=== PATIENT | female | born 1985 | race African-American/Black ===

== ENCOUNTER 2016-07-13 08:24 | Inpatient (IN) | payer MEDICAID ==
[2016-07-13] MEDS ORDERED: MISOPROSTOL 0.2 MG TABLET ONE (08:55)
[2016-07-13] MEDS ORDERED: CARBOPROST TROMETHAMINE INJ 250 MCG/1 ML AMPULE ONE (08:56)
[2016-07-13] MEDS ORDERED: METHYLERGONOVINE MALEATE INJ/PF 0.2 MG/1 ML AMPULE ONE (08:56)
[2016-07-13] MEDS ORDERED: OXYTOCIN 10 UNIT/ML VIAL ONE (08:59)
[2016-07-13] MEDS ORDERED: ONDANSETRON HCL INJ/PF 4 MG/2 ML SDV ONE (08:59)
[2016-07-13] MEDS ORDERED: CEFAZOLIN INJ 1 GM VIAL ONE (08:59)
[2016-07-13] MEDS ORDERED: PROPOFOL INJ 200 MG/20 ML VIAL IV ONE (08:59)
[2016-07-13] MEDS ORDERED: FENTANYL CITRATE INJ/PF 100 MCG/2 ML AMPUL ONE ×2 (08:59→09:00)
[2016-07-13] MEDS ORDERED: MIDAZOLAM 2 MG/2 ML INJ ONE (09:00)
[2016-07-13] MEDS ORDERED: MORPHINE SULFATE 10 MG/ML INJ ONE (09:35)
--- NOTE | 2016-07-13 10:00 | L&D Flow Sheet ---
LD Flowsheet Datetime Report Generated by CPN: 07/13/2016 10:00 Datetime: 07/13/2016 09:57 Vital Signs NBP Sys/Crystal/Mean (mmHg): 135 (QS system process) : 69 (QS system process) : 87 (QS system process) Pulse: 89 (QS system process) Pulse: 87 (QS system process) SpO2 (%): 100 (QS system process) Datetime: 07/13/2016 08:42 Pulse: 107 (QS system process) SpO2 (%): 92 (QS system process) Datetime: 07/13/2016 08:41 Pulse: 100 (QS system process) SpO2 (%): 99 (QS system process) Datetime: 07/13/2016 08:32 Vaginal Exam Membranes Ruptured Date/Time: 07/13/2016 08:52 (Delia Chin RN) Membranes Rupture Method: Artificial (Delia Chin RN) Amniotic Fluid Color: Bloody (Delia Chin RN) Amniotic Fluid Amount: Moderate (Delia Chin RN) Amniotic Fluid Odor: Normal (Delia Chin RN)
--- NOTE | 2016-07-13 10:33 | OPERATIVE REPORT E ---
Operative Report NAME: HERNAN HUBER : 1985 AGE: 31Y DATE OF SURGERY: 07/12/2016 ROOM: LR200 PREOPERATIVE DIAGNOSES: 1. Abruption. 2. History of . 3. Currently at 35 weeks' gestation. POSTOPERATIVE DIAGNOSES: 1. Massive abruption. 2. History of . OPERATION PERFORMED: Repeat low-transverse . SURGEON: WOODROW ESPAÑA M.D. ANESTHESIA: General endotracheal. ESTIMATED BLOOD LOSS: 500 mL. Intraoperatively the patient had vaginal bleeding and greater than 500 mL of blood and clot behind her placenta. SPECIMEN TO PATHOLOGY: Placenta. FINDINGS: Normal-appearing uterus, tubes and ovaries, but the placenta was about 80% from the uterine wall with at least 500 mL of blood and clot behind it. There was not a Couvelaire sign at this point. The x-ray obtained postop due to the STAT nature of the section showed no retained instruments or laparotomy sponges. DESCRIPTION OF PROCEDURE: I was called to the operating room with the patient in the OR by the internet programmer as the patient had arrived on Labor and Delivery hypotensive with heart tones in the 50s. She was having a significant amount of vaginal bleeding and severe abdominal pain. She had been taken to the operating room on my arrival. I quickly obtained verbal consent, prepped and draped her and proceeded with STAT section. After prepping and draping the patient, general anesthesia was achieved. A Pfannenstiel skin incision was made and the abdomen was entered in layers. The low-transverse cervical incision was made. Surgeon's hand was entered into the hysterotomy and the vertex delivered. The infant delivered easily. Cord was clamped and cut, leaving approximately 4 cm of cord for the NICU to use should they need it for venous access. The infant was immediately handed to the NICU team who was in attendance. The placenta was removed. The uterus was exteriorized and cleared of all clots and debris. It was boggy; therefore, Methergine 1 amp was given IM and Cytotec 1000 mcg was placed per rectum by the nurse. The hysterotomy incision was closed with 0 Vicryl in a running, locked fashion. A couple areas of oozing were oversewn with 0 Vicryl. Excellent hemostasis was assured. The uterus, tubes and ovaries were returned to the peritoneal cavity. The cavity was irrigated and hemostasis again assured. Surgicel was placed over the uterine incision given the abruption and concern for future coagulopathy. The peritoneum was closed with 2-0 chromic. The rectus muscles were closed in an interrupted fashion with 2-0 chromic. Subfascial spaces were inspected and noted to be hemostatic. The fascia was closed with #1 Vicryl. The subcutaneous tissues were irrigated and hemostasis achieved with cautery. The skin was closed in a subcuticular fashion with 4-0 Vicryl. The OpSite dressing was applied. While the patient was still under general anesthesia an x-ray was obtained to assure no retained instruments or laparotomy sponges. When the x-ray was normal the patient was awakened from anesthesia and taken to recovery in stable condition. DICTATING PHYSICIAN: WOODROW ESPAÑA M.D. [id number] PHY#: [id number] ID: [id number] JOB#: [id number] ACCT: [id number] cc:WOODROW ESPAÑA M.D. >
[2016-07-13 11:09] LABS: URINE BARBITURATES SCREEN NEGATIVE; URINE METHADONE SCREEN NEGATIVE; URINE OPIATES LOW NEGATIVE; URINE PHENCYCLIDINE SCREEN NEGATIVE
[2016-07-13 11:21] LABS: ABSOLUTE EOSINOPHILS # (AUTO) 0.1 10^3/uL (0.0-0.6); ABSOLUTE LYMPHOCYTES (AUTO) 1.2 10^3/uL (0.5-4.7); ABSOLUTE MONOCYTES (AUTO) 0.8 10^3/uL (0.1-1.4); ABSOLUTE NEUT (AUTO) 14.8 10^3/uL (1.7-8.2); BASOPHILS % (AUTO) 0.3 % (0-2); EOSINOPHILS % (AUTO) 0.7 % (0-6); HEMATOCRIT 25.6 % (36.0-47.0); HEMOGLOBIN 8.5 g/dL (12.0-15.5); HGB HCT DIFFERENCE -0.1; LYMPHOCYTES % (AUTO) 7.3 % (13-45); MEAN CORPUSCULAR HGB CONC 33.2 g/dL (32.0-36.0); MEAN CORPUSCULAR VOLUME 94 fl (80-97); MONOCYTES % (AUTO) 4.5 % (3-13); RED BLOOD COUNT 2.74 10^6/uL (3.72-5.28); SEGMENTED NEUTROPHILS % (AUTO) 87.2 % (42-78)
[2016-07-13 11:24] LABS: FIBRINOGEN 363 mg/dL (209-497); PARTIAL THROMBOPLASTIN TIME 22.5 SEC (23.5-35.8)
[2016-07-13 11:39] LABS: ALANINE AMINOTRANSFERASE 21 U/L (9-52); ALBUMIN 2.7 g/dL (3.5-5.0); ALKALINE PHOSPHATASE 140 U/L (38-126); ANION GAP 6 (5-19); ASPARTATE AMINO TRANSFERASE 25 U/L (14-36); BILIRUBIN,TOTAL 0.2 mg/dL (0.2-1.3); BLOOD UREA NITROGEN 6 mg/dL (7-20); CALCIUM 8.4 mg/dL (8.4-10.2); CARBON DIOXIDE 22 mmol/L (22-30); CHLORIDE 107 mmol/L (98-107); CREATININE RESULT 0.53 mg/dL (0.52-1.25); GLUCOSE 140 mg/dL (75-110); LDH 614 U/L (313-618); POTASSIUM 4.3 mmol/L (3.6-5.0); SODIUM 134.9 mmol/L (137-145); TOTAL PROTEIN 5.6 g/dL (6.3-8.2); URIC ACID 2.9 mg/dL (2.5-6.2)
--- NOTE | 2016-07-13 11:44 | Admission Physical ---
Datetime Report Generated by CPN: 07/13/2016 11:44 CURRENT ADMISSION Chief Complaint: Uterine Contractions; Vaginal Bleeding; Other Chief Complaint Other: Abruption, NRFHTs, Maternal Hypotension Indication for Induction: Not Applicable Admit Plan: Admit to Unit; Initiate Section Protocol ALLERGIES Medication Allergies: diphenhydramine HCl/[place]/Hives (07/13/2016) Medication Allergies: diphenhydramine HCl/[place]/Hives (06/06/2013) OBSTETRICAL HISTORY EDC: 08/18/2016 00:00 : 2 Para: 1 Livin Cesareans: 1 PHYSICAL EXAM General: Normal HEENT: Normal Neurologic: Normal Thyroid: Normal Heart: Normal Lungs: Normal Breast: Deferred Back: Normal Abdomen: Normal Genitourinary Exam: Normal Extremities: Normal DTRs: Normal Pelvic Type: Adequate Physical Exam Comments: vaginal bleeding Vital Signs: Reviewed VAGINAL EXAM Dilatation: 0 FETUS A EGA: 34.6 Monitoring: External US Decelerations: None FHR Category: Category III FHR Comments: NRFHTs, Bradycardia Admit Comment: 31yo at 34+6ega presented via ER with Hypotension and ctx and vaginal bleeding. Pt was taken from the ER immediately upstairs to L_D for above. FHR noted to be in the 50s. She was taken back to the OR for Emergency section due to abruption and NRFHTs. c/b polyhydramnios, non compliant GDM, anemia, poor weight gain (16#), smoker (1/2 ppd). Prior C/S in 2013 - at 39wks for preE and induced ( reported urgent c/s at that time as well). INFORMED CONSENT Informed Consent Obtained: Section Delivery; Risks, Benefits and Alternatives Discussed Signature: with User ID: [email or web address]
--- NOTE | 2016-07-13 12:00 | L&D Flow Sheet ---
LD Flowsheet Datetime Report Generated by CPN: 07/13/2016 12:00 Datetime: 07/13/2016 11:32 NBP Sys/Crystal/Mean (mmHg): 130 (QS system process) : 62 (QS system process) : 89 (QS system process) Pulse: 93 (QS system process) Datetime: 07/13/2016 11:31 Pulse: 97 (QS system process) SpO2 (%): 100 (QS system process) Datetime: 07/13/2016 11:26 Pulse: 87 (QS system process) SpO2 (%): 100 (QS system process) Datetime: 07/13/2016 11:22 NBP Sys/Crystal/Mean (mmHg): 144 (QS system process) : 70 (QS system process) : 100 (QS system process) Pulse: 88 (QS system process) Datetime: 07/13/2016 11:21 Pulse: 94 (QS system process) SpO2 (%): 100 (QS system process) Datetime: 07/13/2016 11:18 Pulse: 108 (QS system process) SpO2 (%): 93 (QS system process) Datetime: 07/13/2016 11:16 Pulse: 111 (QS system process) SpO2 (%): 99 (QS system process) Datetime: 07/13/2016 11:12 NBP Sys/Crystal/Mean (mmHg): 130 (QS system process) : 65 (QS system process) : 91 (QS system process) Pulse: 99 (QS system process) Datetime: 07/13/2016 11:09 NBP Sys/Crystal/Mean (mmHg): 130 (QS system process) : 76 (QS system process) : 95 (QS system process) Pulse: 76 (QS system process) Datetime: 07/13/2016 11:05 Pain Scale: 3 (Delia Chin RN) Pain Presence: Constant (Delia Chin, CORAZON) Pain Type: Cramping (Delia Chin RN) Pain Location: Abdomen (Delia Chin RN) Pain Goal: 2 (Delia Chin RN) Pain Relief Measures: Comfort Measures (Delia Chin, CORAZON) Datetime: 07/13/2016 11:00 IV/Blood Work: Labs Drawn (Delia Chin RN) Datetime: 07/13/2016 10:40 Pain Scale: 5 (Annotations: patient sleeping soundly between fundal rubs, cries out in pain during movement and rub and then returns to snoring.) (Delia Chin RN) Pain Presence: Intermittent (Delia Chin RN) Pain Type: Cramping (Delia Chin RN) Pain Location: Abdomen (Delia Chin RN) Pain Goal: 2 (Delia Chin RN) Pain Relief Measures: Comfort Measures (Delia Chin RN) Vaginal Bleeding: Small (Annotations: small to moderate amount of blood noted on patient's clothing and sheets) (Delia Chin RN) Level of Consciousness: Lethargy (Delia Chin RN) Datetime: 07/13/2016 10:32 NBP Sys/Crystal/Mean (mmHg): 122 (QS system process) : 62 (QS system process) : 86 (QS system process) Pulse: 100 (QS system process) Datetime: 07/13/2016 10:25 Pain Scale: 5 (Annotations: patient sleeping soundly between fundal rubs, cried out in pain during movement and rub and then returns to snoring.) (Delia Chin RN) Pain Presence: Intermittent (Delia Chin RN) Pain Type: Cramping (Delia Chin RN) Pain Location: Abdomen (Delia Chin RN) Pain Goal: 2 (Delia Chin RN) Pain Relief Measures: Comfort Measures (Delia Chin RN) Datetime: 07/13/2016 10:21 NBP Sys/Crystal/Mean (mmHg): 123 (QS system process) : 70 (QS system process) : 91 (QS system process) Pulse: 101 (QS system process) Datetime: 07/13/2016 10:10 Pain Scale: 5 (Annotations: patient sleeping soundly between fundal rubs, cried out in pain during movement and rub and then returns to snoring.) (Delia Chin RN) Pain Presence: Intermittent (Delia Chin RN) Pain Type: Cramping (Delia Chin RN) Pain Location: Abdomen (Delia Chin RN) Pain Goal: 2 (Delia Chin RN) Pain Relief Measures: Comfort Measures (Delia Chin RN)
[2016-07-13] MEDS ORDERED: MEASLES,MUMPS&RUBELLA VACC/PF 0.5 ML VIAL SUBCUT PRN (12:23)
[2016-07-13] MEDS ORDERED: DIPH/PERTUSS(ACELL)/TETANUS VAC/PF 0.5 ML SYR (>=10YO) IM PRN (12:23)
[2016-07-13] MEDS ORDERED: OXYTOCIN/NORMAL SALINE 20 UNIT/1,000 ML RTUINJ INJ PRN (12:23)
[2016-07-13] MEDS ORDERED: SIMETHICONE 80 MG TAB.CHEW PO PRN (12:23)
[2016-07-13] MEDS ORDERED: OXYCODONE-ACETAMINOPHEN 5-325 MG TABLET PO PRN (12:23)
[2016-07-13] MEDS ORDERED: HYDROMORPHONE HCL INJ/PF 2 MG/ML AMPULE IV PRN (12:23)
[2016-07-13] MEDS ORDERED: PROMETHAZINE HCL INJ 25 MG/1 ML VIAL IM PRN (12:23)
[2016-07-13] MEDS ORDERED: ACETAMINOPHEN 325 MG TABLET PO PRN (12:23)
[2016-07-13] MEDS ORDERED: HYDROMORPHONE HCL INJ/PF 2 MG/ML AMPULE ONE (12:41)
[2016-07-13] MEDS ORDERED: ONDANSETRON 4 MG TAB.RAPDIS PO PRN (13:08)
[2016-07-13] MEDS ORDERED: ONDANSETRON HCL INJ/PF 4 MG/2 ML SDV IV PRN (13:09)
[2016-07-13] MEDS ORDERED: RINGERS SOLUTION,LACTATED 1,000 ML IV PRN (13:18)
[2016-07-13] MEDS: CEFAZOLIN 2 GM/D5W RTU 2 GM/50 ML RTUPB IV SCH ×2 (14:58→20:59)
--- NOTE | 2016-07-13 19:00 | L&D Flow Sheet ---
LD Flowsheet Datetime Report Generated by CPN: 07/13/2016 19:00 Datetime: 07/13/2016 11:32 Vital Signs Stage of : Recovery (CRISTINA Sanford) NBP Sys/Crystal/Mean (mmHg): 130 (QS system process) : 62 (QS system process) : 89 (QS system process) Pulse: 93 (QS system process) Pain Presence: Constant (CRISTNIA Sanford) Pain Type: Cramping (Aye Peyman, RNC) Pain Location: Abdomen (Ayesukhi Morley, RNC) Pain Goal: 2 (Ayesukhi Morley, RNC) Pain Relief Measures: Comfort Measures (Aye Peyman, RNC) Datetime: 07/13/2016 11:31 Pulse: 97 (QS system process) SpO2 (%): 100 (QS system process) Datetime: 07/13/2016 11:26 Pulse: 87 (QS system process) SpO2 (%): 100 (QS system process) Datetime: 07/13/2016 11:22 Vital Signs Stage [facility] : [facility] NBP Sys/Crystal/Mean (mmHg): 144 (QS system process) : 70 (QS system process) : 100 (QS system process) Pulse: 88 (QS system process) Respirations: 17 (Aye Morley [facility]) Pain Presence: Constant ([facility] Pain Type: Cramping (Aye Morley [facility]) Pain Location: Abdomen (Aye Morley [facility]) Pain Goal: 2 ([facility] Pain Relief Measures: Comfort Measures ([facility] Datetime: 07/13/2016 11:21 Pulse: 94 (QS system process) SpO2 (%): 100 (QS system process) Datetime: 07/13/2016 11:18 Pulse: 108 (QS system process) SpO2 (%): 93 (QS system process) Datetime: 07/13/2016 11:16 Pulse: 111 (QS system process) SpO2 (%): 99 (QS system process) Datetime: 07/13/2016 11:12 NBP Sys/Crystal/Mean (mmHg): 130 (QS system process) : 65 (QS system process) : 91 (QS system process) Pulse: 99 (QS system process) Datetime: 07/13/2016 11:10 Vital Signs Stage of : Recovery ([facility]) [facility]: [facility] Pain Location: Abdomen ([facility]) Pain Goal: 2 ([facility]) Pain Relief Measures: Comfort Measures ([facility]) Datetime: 07/13/2016 11:09 NBP Sys/Crystal/Mean (mmHg): 130 (QS system process) : 76 (QS system process) : 95 (QS system process) Pulse: 76 (QS system process) Datetime: 07/13/2016 11:05 Pain Pain Scale: 3 (Delia Marlatt, RN) Pain Presence: Constant (Delia Marlatt, RN) Pain Type: Cramping (Delia Marlatt, RN) Pain Location: Abdomen (Delia Marlatt, RN) Pain Goal: 2 (Delia Marlatt, RN) Pain Relief Measures: Comfort Measures (Delia Marlatt, RN) Datetime: 07/13/2016 11:00 Patient Care IV/Blood Work: Labs Drawn (Delia Chin, CORAZON) Datetime: 07/13/2016 10:40 Pain Pain Scale: 5 (Annotations: patient sleeping soundly between fundal rubs, cries out in pain during movement and rub and then returns to snoring.) (Delia Chin RN) Pain Presence: Intermittent (Delia Chin RN) Pain Type: Cramping (Delia Chin RN) Pain Location: Abdomen (Delia Chin RN) Pain Goal: 2 (Delia Chin RN) Pain Relief Measures: Comfort Measures (Delia Marlatt, RN) Vaginal Bleeding: Small (Annotations: small to moderate amount of blood noted on patient's clothing and sheets) (Delia Chin, RN) Maternal Assessment Level of Consciousness: Lethargy (Delia Chin, RN) Datetime: 07/13/2016 10:32 NBP Sys/Crystal/Mean (mmHg): 122 (QS system process) : 62 (QS system process) : 86 (QS system process) Pulse: 100 (QS system process) Datetime: 07/13/2016 10:25 Pain Pain Scale: 5 (Annotations: patient sleeping soundly between fundal rubs, cried out in pain during movement and rub and then returns to snoring.) (Delia Chin RN) Pain Presence: Intermittent (Delia Chin RN) Pain Type: Cramping (Delia Chin RN) Pain Location: Abdomen (Delia Chin RN) Pain Goal: 2 (Delia Chin RN) Pain Relief Measures: Comfort Measures (Delia Chin RN) Datetime: 07/13/2016 10:21 NBP Sys/Crystal/Mean (mmHg): 123 (QS system process) : 70 (QS system process) : 91 (QS system process) Pulse: 101 (QS system process) Datetime: 07/13/2016 10:10 Pain Pain Scale: 5 (Annotations: patient sleeping soundly between fundal rubs, cried out in pain during movement and rub and then returns to snoring.) (Delia Chin RN) Pain Presence: Intermittent (Delia Chin RN) Pain Type: Cramping (Delia Chin RN) Pain Location: Abdomen (Delia Chin RN) Pain Goal: 2 (Delia Chin RN) Pain Relief Measures: Comfort Measures (Delia Chin RN) Datetime: 07/13/2016 09:57 NBP Sys/Crystal/Mean (mmHg): 135 (QS system process) : 69 (QS system process) : 87 (QS system process) Pulse: 89 (QS system process) Pulse: 87 (QS system process) SpO2 (%): 100 (QS system process) Datetime: 07/13/2016 09:55 Pain Pain Scale: 5 (Annotations: patient sleeping soundly between fundal rubs, cried out in pain during movement and rub and then returns to snoring.) (Delia Chin RN) Pain Presence: Intermittent (Delia Chin RN) Pain Type: Cramping (Delia Chin RN) Pain Location: Abdomen (Delia Chin RN) Pain Goal: 2 (Delia Chin RN) Pain Relief Measures: Comfort Measures (Delia Chin RN) Datetime: 07/13/2016 08:52 Vaginal Exam Membranes Ruptured Date/Time: 07/13/2016 08:52 (Deliacecilia Chin RN) Membranes Rupture Method: Artificial (Deliacecilia Chin RN) Amniotic Fluid Color: Bloody (Delia ChinCORAZON) Amniotic Fluid Amount: Moderate (Delia Chin, RN) Amniotic Fluid Odor: Normal (Delia ChinCORAZON) Datetime: 07/13/2016 08:44 Uterine Activity Monitor Mode: External; Palpation (Delia Marlatt, RN) Quality: Moderate to Strong (Delia Marlatt, RN) Resting Tone (Palpate): Non Relaxed (Delia Marlatt, RN) Contraction Comments: firm uterus, no relaxation (Delia Marlatt, RN) Assessment A Monitor Mode: External US (Delia Marlatt, RN) FHR Baseline Rate : 70 (Delia Marlatt, RN) FHR Baseline Changes: Bradycardia (Delia Marlatt, RN) Variability: Minimal - Undetectable to <=5 bpm (Delia Marlatt, RN) Comments: monitors removed, patient to OR for stat section (Delia Marlatt, RN) Pain Pain Scale: 5 (Delia Gomeslatt, RN) Pain Presence: Constant (Delia Marlatt, RN) Pain Type: Sharp (Delia Chin RN) Pain Location: Back (Delia Chin, RN) Datetime: 07/13/2016 08:43 Provider Reviewed Strip: Yes (Delia Chin, RN) Communication Communication: RN at Bedside; Provider at Bedside (Delia Chin RN) Provider Notified (Name): Mckenna Chung CNM (Delia Chin RN) Communication Comments: Provider at bedside assessing patient, calling MD for stat for bradycardia and possible abruption (Delia hCin RN) Datetime: 07/13/2016 08:42 Pulse: 107 (QS system process) SpO2 (%): 92 (QS system process) Datetime: 07/13/2016 08:41 Pulse: 100 (QS system process) SpO2 (%): 99 (QS system process)
[2016-07-13] MEDS: IBUPROFEN 800 MG TABLET PO SCH ×2 (19:13→23:55)
[2016-07-13] MEDS: DOCUSATE SODIUM 100 MG CAPSULE PO SCH (19:14)
[2016-07-13] MEDS: OXYCODONE-ACETAMINOPHEN 5-325 MG TABLET PO PRN (20:33)
[2016-07-14] MEDS ORDERED: NALOXONE HCL INJ/PF 0.4 MG/1 ML SDV ONE ×2 (00:15→00:18)
[2016-07-14 00:58] LABS: ABSOLUTE LYMPHOCYTES (AUTO) 1.2 10^3/uL (0.5-4.7); ABSOLUTE MONOCYTES (AUTO) 0.9 10^3/uL (0.1-1.4); ABSOLUTE NEUT (AUTO) 7.3 10^3/uL (1.7-8.2); BASOPHILS % (AUTO) 0.3 % (0-2); EOSINOPHILS % (AUTO) 0.5 % (0-6); HEMATOCRIT 19.3 % (36.0-47.0); HGB HCT DIFFERENCE 0.5; LYMPHOCYTES % (AUTO) 12.6 % (13-45); MEAN CORPUSCULAR HEMOGLOBIN 31.3 pg (27.0-33.4); MEAN CORPUSCULAR VOLUME 92 fl (80-97); MONOCYTES % (AUTO) 9.3 % (3-13); RED CELL DISTRIBUTION WIDTH 14.7 % (11.5-14.0); SEGMENTED NEUTROPHILS % (AUTO) 77.3 % (42-78); WHITE BLOOD COUNT 9.5 10^3/uL (4.0-10.5)
[2016-07-14 01:07] LABS: HEMOGLOBIN 6.6 g/dL (12.0-15.5)
[2016-07-14 01:15] LABS: ANION GAP 6 (5-19); BLOOD UREA NITROGEN 6 mg/dL (7-20); CALCIUM 8.3 mg/dL (8.4-10.2); CARBON DIOXIDE 21 mmol/L (22-30); CHLORIDE 106 mmol/L (98-107); CREATINE KINASE 964 U/L (30-135); CREATININE RESULT 0.54 mg/dL (0.52-1.25); GLUCOSE 100 mg/dL (75-110); SODIUM 133.4 mmol/L (137-145)
[2016-07-14 01:29] LABS: TROPONIN I < 0.012 ng/mL
--- NOTE | 2016-07-14 01:37 | PDOC CONSULTATION ---
Consultation Consult Date: 07/14/16 Attending physician:: MAURICE CHUNG Consult reason:: Possible stroke History of Present Illness Admission Date/PCP: 07/13/16 08:54 [facility] DEPT Patient complains of: Slowed speech History of Present Illness: HERNAN HUBER is a 31 year old female with a past Mike history of migraine headache and unclear history of dysrhythmia who is admitted through the emergency room earlier in the day for 35 week with vaginal bleeding with hypotension and a heart rate in the 50s, taken to the OR for section for abruption and nonreassuring heart rate, in the OR her estimated blood loss including clotting is approximately 900 mL. Postoperatively the patient had some slowed speech but requested medication for pain she received Dilaudid exacerbating slowed speech and [employer] was called. Patient was found in sinus rhythm normotensive, awake alert oriented 3 moving all 4 extremities without expressive or receptive aphasia but slowed speech patient denies focal weakness pain blurred vision or difficulty swallowing. Given her blood loss and unclear history of dysrhythmia she is ordered a stat CT head and telemetry monitoring with basic labs. Past Medical History Cardiac Medical History: Reports: Other - Patient gives unclear history of episodes of dysrhythmia Pulmonary Medical History: Reports: Pneumonia Neurological Medical History: Reports: Migraine Psychiatric Medical History: Denies: Substance Abuse, Tobacco Dependency Social History Information Source: Patient, Relative Lives with: Family Smoking Status: Former Smoker Frequency of Alcohol Use: None Drugs: None - Advance Directive Resuscitation Status: Full Code Family History Family History: Arthritis, CAD, CVA, DM, Hyperlipidemia, Hypertension, Malignancy Parental Family History Reviewed: Yes Children Family History Reviewed: Yes Sibling(s) Family History Reviewed.: Yes Medication/Allergy Home Medications: Albuterol Sulfate [Ventolin Hfa] 2 puff IH BID PRN 06/09/13 Azithromycin [Zithromax Tri-Pietro] 500 mg PO ASDIR PRN 06/09/13 Ferrous Sulfate [Feosol 325 mg Tablet] 325 mg PO DAILY 06/09/13 Ibuprofen [Motrin 800 mg Tablet] 800 mg PO Q8H PRN 06/09/13 Labetalol HCl 100 mg PO BID 06/09/13 Oxycodone HCl/Acetaminophen [Percocet 5-325 mg Tablet] 1 - 2 tab PO Q4H PRN Allergies/Adverse Reactions: diphenhydramine HCl [From Benadryl] Allergy (Mild, Verified 07/13/16 11:25) Hives Review of Systems Constitutional: ABSENT: chills, fever(s), headache(s), weight gain, weight loss Eyes: ABSENT: visual disturbances Ears: ABSENT: hearing changes Cardiovascular: ABSENT: chest pain, dyspnea on exertion, edema, orthropnea, palpitations Respiratory: ABSENT: cough, hemoptysis Gastrointestinal: ABSENT: abdominal pain, constipation, diarrhea, hematemesis, hematochezia, nausea, vomiting Genitourinary: ABSENT: dysuria, hematuria Musculoskeletal: ABSENT: joint swelling Integumentary: ABSENT: rash, wounds Neurological: ABSENT: abnormal gait, abnormal speech, confusion, dizziness, focal weakness, syncope Psychiatric: ABSENT: anxiety, depression, homidical ideation, suicidal ideation Endocrine: ABSENT: cold intolerance, heat intolerance, polydipsia, polyuria Hematologic/Lymphatic: ABSENT: easy bleeding, easy bruising Physical Exam Vital Signs: Temp Pulse Resp BP Pulse Ox 98.4 F 77 12 109/63 100 07/13/16 23:36 07/14/16 00:10 07/14/16 00:10 07/14/16 00:10 07/14/16 00:10 Intake & Output 07/12/16 07/13/16 07/14/16 11:59 11:59 11:59 Intake Total 150 Output Total 950 Balance -800 Weight 49.033 kg General appearance: PRESENT: no acute distress, cooperative, thin, well- developed, well-nourished, other - Patient able to follow commands but appears anxious. ABSENT: hard of hearing, mild distress, morbidly obese, obese Head exam: PRESENT: atraumatic, normocephalic Eye exam: PRESENT: conjunctiva pink, EOMI, PERRLA. ABSENT: scleral icterus Ear exam: PRESENT: normal external ear exam Mouth exam: PRESENT: moist, tongue midline Neck exam: ABSENT: carotid bruit, JVD, lymphadenopathy, thyromegaly Respiratory exam: PRESENT: clear to auscultation sanam. ABSENT: rales, rhonchi, wheezes Cardiovascular exam: PRESENT: RRR, +S1, +S2. ABSENT: diastolic murmur, rubs, systolic murmur Pulses: PRESENT: normal dorsalis pedis pul Vascular exam: PRESENT: normal capillary refill GI/Abdominal exam: PRESENT: normal bowel sounds, soft. ABSENT: distended, guarding, mass, organolmegaly, rebound, tenderness Rectal exam: PRESENT: deferred Extremities exam: PRESENT: full ROM. ABSENT: calf tenderness, clubbing, pedal edema Neurological exam: PRESENT: alert, awake, oriented to person, oriented to place , oriented to time, oriented to situation, CN II-XII grossly intact, other - Speech with psychomotor slowing without word finding difficulty and consistent samuel following all commands otherwise. ABSENT: motor sensory deficit Psychiatric exam: PRESENT: anxious, unusual affect. ABSENT: flat affect, manic , normal mood Skin exam: PRESENT: dry, intact, warm. ABSENT: cyanosis, rash Results Laboratory Results: 07/14/16 00:49 07/13/16 07/13/16 07/13/16 11:08 11:08 11:08 WBC 17.0 H RBC 2.74 L Hgb 8.5 L Hct 25.6 L MCV 94 MCH 31.0 MCHC 33.2 RDW 15.0 H Plt Count 120 L Seg Neutrophils % 87.2 H Lymphocytes % 7.3 L Monocytes % 4.5 Eosinophils % 0.7 Basophils % 0.3 Absolute Neutrophils 14.8 H Absolute Lymphocytes 1.2 Absolute Monocytes 0.8 Absolute Eosinophils 0.1 Absolute Basophils 0.0 Sodium 134.9 L Potassium 4.3 Chloride 107 Carbon Dioxide 22 Anion Gap 6 BUN 6 L Creatinine 0.53 Est GFR ( Amer) > 60 Est GFR (Non-Af Amer) > 60 Glucose 140 H Uric Acid 2.9 Calcium 8.4 Total Bilirubin 0.2 AST 25 ALT 21 Alkaline Phosphatase 140 H Total Protein 5.6 L Albumin 2.7 L Blood Type A POSITIVE Antibody Screen NEGATIVE 07/14/16 00:49 WBC RBC Hgb Hct MCV MCH MCHC RDW Plt Count Seg Neutrophils % Lymphocytes % Monocytes % Eosinophils % Basophils % Absolute Neutrophils Absolute Lymphocytes Absolute Monocytes Absolute Eosinophils Absolute Basophils Sodium 133.4 L Potassium 4.0 Chloride 106 Carbon Dioxide 21 L Anion Gap 6 BUN 6 L Creatinine 0.54 Est GFR ( Amer) > 60 Est GFR (Non-Af Amer) > 60 Glucose 100 Uric Acid Calcium 8.3 L Total Bilirubin AST ALT Alkaline Phosphatase Total Protein Albumin Blood Type Antibody Screen 07/14/16 00:49 Creatine Kinase 964 H Impressions: KUB X-Ray 07/13/16 00:00 IMPRESSION: No evidence of foreign body. Head CT 07/14/16 00:27 IMPRESSION: NORMAL BRAIN CT WITHOUT CONTRAST. Assessment & Plan - Diagnosis (1) Atypical migraine Is this a current diagnosis for this admission?: YesPlan: Presentation is inconsistent with CVA however history of dysrhythmia and day 0 I will obtain noncontrasted CT of the head, that said I believe it is most consistent with an atypical migraine with psychomotor slowing only continue monitoring with supportive care consider neurology consult (2) Anemia Is this a current diagnosis for this admission?: YesPlan: Patient was anemic prior to the OR estimated blood loss was significant I will order 1 unit of pack red blood cells stat and reevaluate post transfusion CBC - Time Time Spent: 30 to 50 Minutes
[2016-07-14] MEDS: IBUPROFEN 800 MG TABLET PO SCH ×3 (05:11→18:01)
--- NOTE | 2016-07-14 06:00 | L&D General Admission ---
General Admit Datetime Report Generated by CPN: 07/14/2016 06:00 INFORMATION Patient Age: 30 (02/24/2016 11:50:QS system process) EDC: 08/18/2016 00:00 (07/13/2016 08:32:Delia Chin RN) : 2 (07/13/2016 08:32:Delia Chin RN) Para: 1 (07/13/2016 08:32:Delia Chin RN) Livin (07/13/2016 08:32:Delia Chin RN) Cesareans: 1 (07/13/2016 08:32:Delia Chin RN) CARE Primary Lime Supervisor: [facility] (07/13/2016 08:32:Delia Chin RN) Height (in): 61 (07/13/2016 11:44:QS system process) ALLERGIES Medication Allergies: diphenhydramine HCl/SD/Hives (07/13/2016) (07/13/2016 11:25:QS system process) DEMOGRAPHICS Address: [address] [place] [id number] (02/24/2016 11:50:QS system process) Zipcode: [address] (02/24/2016 11:50:QS system process) Home (02/24/2016 11:50:QS system process) Work (02/24/2016 11:50:QS system process) N: [id number] (02/24/2016 11:50:QS system process) Next of Kin Name: DICK CROUCH (02/24/2016 11:50:QS system process) Next of Kin (02/24/2016 11:50:QS system process) Next of Kin Relationship: FA (02/24/2016 11:50:QS system process) Date of : 1985 (02/24/2016 11:50:QS system process) Marital Status: (02/24/2016 11:50:QS system process) Sex: Female (02/24/2016 11:50:QS system process) Race: (02/24/2016 11:50:QS system process) Ethnicity: Non- or (02/24/2016 11:50:QS system process) Jehovah'S Witness: None (02/24/2016 11:50:QS system process) VACCINE HISTORY Influenza Vaccine: Yes (07/13/2016 08:32:Delia Chin RN) Influenza Date: 02/2016 (07/13/2016 08:32:Delia Chin RN) LABS Hemoglobin: 6.6 L (Annotations: VERBAL RESULT GIVEN TO YURY KING RN AT 0107 07/14/16 BY MARLENE ELLIOTT. VERIFIED BY READ BACK.) (07/14/2016 00:49:QS system process) Hematocrit: 19.3 L (07/14/2016 00:49:QS system process) MCV: 92 (07/14/2016 00:49:QS system process) Group Beta Strep: unknown (07/13/2016 08:32:Delia Chin RN) RPR/VDRL: Nonreactive (Annotations: Data stored by CPN on behalf of user) (07/13/2016 08:32:Delia Chin RN) HIV Exposure Test: Negative (07/13/2016 08:32:Delia Chin RN)
--- NOTE | 2016-07-14 06:00 | L&D Current Admission ---
Current Admit Datetime Report Generated by CPN: 07/14/2016 06:00 ADMISSION INFORMATION Chief Complaint: Contractions; Uterine Cramping; Vaginal Bleeding (07/13/2016 10:40:Delia Chin RN)
--- NOTE | 2016-07-14 06:15 | L&D Flow Sheet ---
LD Flowsheet Datetime Report Generated by CPN: 07/14/2016 06:15 Datetime: 07/14/2016 00:13 Bedside Blood Glucose: 99 (QS system process)
[2016-07-14] MEDS: CEFAZOLIN 2 GM/D5W RTU 2 GM/50 ML RTUPB IV SCH ×2 (06:16→10:30)
[2016-07-14] MEDS: PRENATAL VITAMIN W-O CA NO5/FE FUMARATE/FA CAPSULE PO SCH (09:21)
[2016-07-14] MEDS: DOCUSATE SODIUM 100 MG CAPSULE PO SCH ×2 (09:21→18:01)
[2016-07-14] MEDS: OXYCODONE-ACETAMINOPHEN 5-325 MG TABLET PO PRN ×2 (09:38→18:02)
--- NOTE | 2016-07-14 10:17 | PDOC PROGRESS REPORT ---
Subjective-OB Subjective: Post Delivery Day: 31 year old. Denies any needs at this time. Pt sitting in bed eating, regular diet. Speech clear, appropriate, she denies weakness on rt side, color is good. She reports ambulation, +flatus and light bleeding. She is voiding without difficulty. Family at bedside. Pt wants to go to nursery to see baby. Advised pushing a wheelchair. Physical Exam (OB) Vital Signs: Temp Pulse Resp BP Pulse Ox 98.8 F 68 16 121/63 99 07/14/16 09:00 07/14/16 09:00 07/14/16 09:00 07/14/16 09:00 07/14/16 09:00 Intake & Output 07/13/16 07/14/16 07/15/16 06:59 06:59 06:59 Intake Total 450 300 Output Total 950 Balance -500 300 Weight 49.033 kg - Dressing Removed: Yes Incision: Dressing - Bilateral Tubal Ligation Dressing Removed: No - Lochia Lochia Amount: Small 10-25 ml Lochia Color: Rubra/Red - Abdomen Description: Soft, Round Hernia Present: No Fundal Description: Firm, Midline Fundal Height: u/u - u/2 Objective-Diagnostic Laboratory: 07/14/16 00:49 07/14/16 00:49 07/13/16 07/13/16 07/13/16 11:08 11:08 11:08 WBC 17.0 H RBC 2.74 L Hgb 8.5 L Hct 25.6 L MCV 94 MCH 31.0 MCHC 33.2 RDW 15.0 H Plt Count 120 L Seg Neutrophils % 87.2 H Lymphocytes % 7.3 L Monocytes % 4.5 Eosinophils % 0.7 Basophils % 0.3 Absolute Neutrophils 14.8 H Absolute Lymphocytes 1.2 Absolute Monocytes 0.8 Absolute Eosinophils 0.1 Absolute Basophils 0.0 Sodium 134.9 L Potassium 4.3 Chloride 107 Carbon Dioxide 22 Anion Gap 6 BUN 6 L Creatinine 0.53 Est GFR ( Amer) > 60 Est GFR (Non-Af Amer) > 60 Glucose 140 H Uric Acid 2.9 Calcium 8.4 Total Bilirubin 0.2 AST 25 ALT 21 Alkaline Phosphatase 140 H Total Protein 5.6 L Albumin 2.7 L Blood Type A POSITIVE Antibody Screen NEGATIVE 07/14/16 07/14/16 00:49 00:49 WBC 9.5 RBC 2.10 L Hgb 6.6 L Hct 19.3 L MCV 92 MCH 31.3 MCHC 34.0 RDW 14.7 H Plt Count 95 L Seg Neutrophils % 77.3 Lymphocytes % 12.6 L Monocytes % 9.3 Eosinophils % 0.5 Basophils % 0.3 Absolute Neutrophils 7.3 Absolute Lymphocytes 1.2 Absolute Monocytes 0.9 Absolute Eosinophils 0.0 Absolute Basophils 0.0 Sodium 133.4 L Potassium 4.0 Chloride 106 Carbon Dioxide 21 L Anion Gap 6 BUN 6 L Creatinine 0.54 Est GFR ( Amer) > 60 Est GFR (Non-Af Amer) > 60 Glucose 100 Uric Acid Calcium 8.3 L Total Bilirubin AST ALT Alkaline Phosphatase Total Protein Albumin Blood Type Antibody Screen 07/14/16 07/14/16 00:49 00:49 Creatine Kinase 964 H CK-MB (CK-2) 10.60 H Troponin I < 0.012 Assessment and Plan(PN) - Assessment and Plan (1) S/P emergency section Is this a current diagnosis for this admission?: Yes (2) Placental abruption Qualifiers: Trimester: third trimester Qualified Code(s): O45.93 - Premature separation of placenta, unspecified, third trimester Is this a current diagnosis for this admission?: Yes - Time Spent with Patient Time with patient: Less than 15 minutes Medications reviewed and adjusted accordingly: Yes - Disposition Anticipated Discharge: Home Within: within 48 hours
--- NOTE | 2016-07-14 12:59 | EKG REPORT ---
SEVERITY:- NORMAL ECG - SINUS RHYTHM : Confirmed by: Asia Mathews 14-Jul-2016 12:58:53
[2016-07-14 15:22] LABS: HEMATOCRIT 25.7 % (36.0-47.0); HGB HCT DIFFERENCE 0.7; MEAN CORPUSCULAR HEMOGLOBIN 30.8 pg (27.0-33.4); MEAN CORPUSCULAR HGB CONC 34.4 g/dL (32.0-36.0); MEAN CORPUSCULAR VOLUME 90 fl (80-97); RED BLOOD COUNT 2.86 10^6/uL (3.72-5.28); WHITE BLOOD COUNT 9.6 10^3/uL (4.0-10.5)
[2016-07-14 15:43] LABS: HEMOGLOBIN 8.8 g/dL (12.0-15.5)
[2016-07-14] MEDS ORDERED: HYDROXYZINE PAMOATE 50 MG CAPSULE PO PRN (20:59)
[2016-07-15] MEDS: IBUPROFEN 800 MG TABLET PO SCH ×5 (00:43→23:12)
[2016-07-15] MEDS: OXYCODONE-ACETAMINOPHEN 5-325 MG TABLET PO PRN ×2 (02:16→18:16)
--- NOTE | 2016-07-15 10:04 | PDOC PROGRESS REPORT ---
Subjective Progress Note for:: 07/15/16 Subjective:: Patient was seen for slow responsiveness, questionable stroke. CT scan reportedly was negative. Patient denies any slurring of speech, swallowing difficulty, focal weakness. She reports intolerance to pain and when it happens she becomes slow in terms of responding due to the discomfort. No such episode was reported again. Patient reports that she does still have some pain intermittently but better. Patient received 2 units of packed RBC. Hemoglobin and hematocrit improved. Patient voices no complaints. Physical Exam Vital Signs: Temp Pulse Resp BP Pulse Ox 98.8 F 71 16 154/89 H 100 07/15/16 08:27 07/15/16 08:27 07/15/16 08:27 07/15/16 08:27 07/15/16 08:27 Intake & Output 07/14/16 07/15/16 07/16/16 06:59 06:59 06:59 Intake Total 450 550 Output Total 950 Balance -500 550 Weight 49.033 kg General appearance: PRESENT: no acute distress, cooperative Head exam: PRESENT: normocephalic Eye exam: PRESENT: EOMI Mouth exam: PRESENT: moist, neck supple Neck exam: ABSENT: JVD Respiratory exam: PRESENT: clear to auscultation sanam Cardiovascular exam: PRESENT: RRR. ABSENT: gallop GI/Abdominal exam: PRESENT: soft. ABSENT: distended Extremities exam: ABSENT: pedal edema Neurological exam: PRESENT: alert, awake, oriented to person, oriented to place , oriented to time, oriented to situation Skin exam: PRESENT: dry, warm. ABSENT: cyanosis Results Laboratory Results: 07/14/16 15:09 07/14/16 00:49 07/14/16 15:09 WBC 9.6 RBC 2.86 L Hgb 8.8 L D Hct 25.7 L MCV 90 MCH 30.8 MCHC 34.4 RDW 16.0 H Plt Count 93 L 07/14/16 07/14/16 00:49 00:49 Creatine Kinase 964 H CK-MB (CK-2) 10.60 H Troponin I < 0.012 Impressions: KUB X-Ray 07/13/16 00:00 IMPRESSION: No evidence of foreign body. Head CT 07/14/16 00:27 IMPRESSION: NORMAL BRAIN CT WITHOUT CONTRAST. Assessment & Plan - Diagnosis (1) Anemia Qualifiers: Anemia type: unspecified type Qualified Code(s): D64.9 - Anemia, unspecified Is this a current diagnosis for this admission?: Yes (2) Atypical migraine Is this a current diagnosis for this admission?: Yes - Time Time Spent with patient: 15-24 minutes - Plan Summary Plan Summary: Patient is stable and did well. No further workup necessary at this time. Anemia likely postoperative. Continue current medications and management. We will sign off from the case. Please call us as needed. Thank you so much for letting us participate in her care.
--- NOTE | 2016-07-15 11:00 | PDOC PROGRESS REPORT ---
Subjective-OB Subjective: Post Delivery Day: 31 year old. Denies any needs at this time. Ready for discharge. Baby to remain in hospital. Physical Exam (OB) Vital Signs: Temp Pulse Resp BP Pulse Ox 98.8 F 71 16 154/89 H 100 07/15/16 08:27 07/15/16 08:27 07/15/16 08:27 07/15/16 08:27 07/15/16 08:27 Intake & Output 07/14/16 07/15/16 07/16/16 06:59 06:59 06:59 Intake Total 450 550 Output Total 950 Balance -500 550 Weight 49.033 kg - PIH/Pre-Eclampsia DTR's: 1 + Clonus: Negative Headache: Absent Epigastric Pain: No Visual Changes: No - Dressing Removed: No - opsite Incision: Dressing, Well Approximated Closure Type: opsite - Lochia Lochia Amount: Scant < 10 ml Lochia Color: Rubra/Red - Abdomen Description: Soft, Round Hernia Present: No Bowel Sounds: Normoactive Flatus Presence: Present Stool: No Fundal Description: Firm, Midline Fundal Height: u/u - u/2 Objective-Diagnostic Laboratory: 07/14/16 15:09 07/14/16 00:49 07/14/16 15:09 WBC 9.6 RBC 2.86 L Hgb 8.8 L D Hct 25.7 L MCV 90 MCH 30.8 MCHC 34.4 RDW 16.0 H Plt Count 93 L 07/14/16 07/14/16 00:49 00:49 Creatine Kinase 964 H CK-MB (CK-2) 10.60 H Troponin I < 0.012 Assessment and Plan(PN) - Time Spent with Patient Medications reviewed and adjusted accordingly: Yes - Disposition Anticipated Discharge: Home
[2016-07-15] MEDS: DOCUSATE SODIUM 100 MG CAPSULE PO SCH ×2 (11:49→18:11)
[2016-07-15] MEDS: PRENATAL VITAMIN W-O CA NO5/FE FUMARATE/FA CAPSULE PO SCH (11:50)
[2016-07-16] MEDS: IBUPROFEN 800 MG TABLET PO SCH ×2 (06:55→11:17)
[2016-07-16 08:43] VITALS: BP 142/85
--- NOTE | 2016-07-16 09:59 | PDOC DISCHARGE SUMMARY ---
Final Diagnosis Discharge Date: 07/16/16 - Final Diagnosis (1) Anemia Is this a current diagnosis for this admission?: Yes (2) Placental abruption Is this a current diagnosis for this admission?: Yes (3) S/P emergency section Is this a current diagnosis for this admission?: Yes Discharge Data - Discharge Medication Home Medications: Docusate Sodium [Colace 100 mg Capsule] 100 mg PO BID #60 capsule 07/16/16 Ferrous Sulfate 325 mg PO TID #90 tablet. 07/16/16 Ibuprofen [Motrin 800 mg Tablet] 800 mg PO Q6 #60 tablet 07/16/16 Oxycodone HCl/Acetaminophen [Percocet 5-325 mg Tablet] 2 tab PO Q4HP PRN #30 tablet 07/16/16 Gestational Age: 34.6 Reason(s) for Admission: Onset of Labor Procedures: NST Intrapartum Procedure(s): : Low Cervical, Transverse Complication(s): Other - placenta abruption - [place] Data Baby 1 Male Home with Mother: No Complications: Yes - premature, abruption - Diagnosis Test Laboratory: Temp Pulse Resp BP Pulse Ox 98.3 F 73 14 142/85 H 100 07/16/16 07:52 07/16/16 07:52 07/16/16 07:52 07/16/16 07:52 07/16/16 07:52 07/13/16 07/13/16 07/14/16 09:30 11:08 00:49 RBC 2.74 L 2.10 L Hgb 8.5 L 6.6 L Hct 25.6 L 19.3 L Urine Opiates Screen NEGATIVE 07/14/16 15:09 RBC 2.86 L Hgb 8.8 L D Hct 25.7 L Urine Opiates Screen - Discharge information/Instructions Discharge Activity: Activity As Tolerated, No Driving, No Lifting Over 10 Pounds , No Lifting/Push/Pulling, Pelvic Rest, No tub bath Discharge Diet: Regular Disposition: HOME, SELF-CARE Follow up with: [facility] in: 1, Weeks
[2016-07-16] MEDS: PRENATAL VITAMIN W-O CA NO5/FE FUMARATE/FA CAPSULE PO SCH (11:07)
[2016-07-16] MEDS: DOCUSATE SODIUM 100 MG CAPSULE PO SCH (11:07)
== END 2016-07-16 14:40 | disposition home or self-care (01) | DRG 765 ==
LOC: LC 08:24 → LR 08:54 → 2S 11:42
PROVIDERS: ADMIT Student in an Organized Health Care Education/Training Program; ATTEND Specialist
PROC: 10D00Z1 Extraction of Products of Conception, Low, Open Approach (ICD-10-PCS; principal; 2016-07-13)
PROC: 4A1HXCZ Monitoring of Products of Conception, Cardiac Rate, External Approach (ICD-10-PCS; 2016-07-13)
PROC: 30233N1 Transfusion of Nonautologous Red Blood Cells into Peripheral Vein, Percutaneous Approach (ICD-10-PCS; 2016-07-14)
DX: O45.93 Premature separation of placenta, unspecified, third trimester (principal); O99.354 Diseases of the nervous system complicating childbirth; D62 Acute posthemorrhagic anemia; O76 Abnormality in fetal heart rate and rhythm complicating labor and delivery; O99.334 Smoking (tobacco) complicating childbirth; G43.909 Migraine, unspecified, not intractable, without status migrainosus; O40.3XX0 Polyhydramnios, third trimester, not applicable or unspecified; O99.02 Anemia complicating childbirth; O34.211 Maternal care for low transverse scar from previous cesarean delivery; O26.13 Low weight gain in pregnancy, third trimester; O24.429 Gestational diabetes mellitus in childbirth, unspecified control; F17.200 Nicotine dependence, unspecified, uncomplicated; Z37.0 Single live birth; Z3A.35 35 weeks gestation of pregnancy; R47.89 Other speech disturbances; Z82.49 Family history of ischemic heart disease and other diseases of the circulatory system; Z82.3 Family history of stroke; Z80.9 Family history of malignant neoplasm, unspecified; Z83.3 Family history of diabetes mellitus
CPT/HCPCS: 1961; 36415; 36430; 70450; 74000; 80048; 80053; 80307; 82550; 82553; 82962; 83615; 84484; 84550; 85025; 85027; 85362; 85384; 85610; 85730; 86592; 86850; 86900; 86901; 86920; 88307; 93005; 93010; 94760; 94799; J0690; J1170; J2210; J2250; J2270; J2310; J2405; J2590; J2704; J3010; J3490; P9016

== ENCOUNTER 2016-07-20 15:55 | Inpatient (IN) | payer MEDICAID ==
--- NOTE | 2016-07-20 16:05 | ER Document Report ---
ED Medical Screen (RME) - General Stated Complaint: BLOOD PRESSURE PROBLEM Mode of Arrival: Ambulatory Information source: Patient Notes: pt presents to the ed with possible pre eclampsia. PP one week, reports some blurred vision. Denies headache, fever vomiting diarrhea. Is not taking anything for her blood pressure. Sent over from [facility] , dr holder. . Hx of preeclamsia I have greeted and performed a rapid initial assessment of this patient. A comprehensive ED assessment and evaluation of the patient, analysis of test results and completion of the medical decision making process will be conducted by additional ED providers. TRAVEL OUTSIDE OF THE [place] IN LAST 30 DAYS: No - Related Data Allergies/Adverse Reactions: diphenhydramine HCl [From Benadryl] Allergy (Mild, Verified 07/13/16 11:25) Hives Past Medical History Pulmonary Medical History: Reports: Hx Pneumonia Neurological Medical History: Reports: Hx Migraine Musculoskeltal Medical History: Reports Hx Musculoskeletal Trauma - multiple fractures Traumatic Medical History: Reports: Hx Fractures Past Surgical History: Reports: Hx Abdominal Surgery - hernia repair, Hx Inguinal Hernia - Immunizations Immunizations up to date: No Hx Diphtheria, Pertussis, Tetanus Vaccination: Yes
[2016-07-20 16:44] LABS: HEMATOCRIT 31.3 % (36.0-47.0); HEMOGLOBIN 10.4 g/dL (12.0-15.5); HGB HCT DIFFERENCE -0.1; MEAN CORPUSCULAR HEMOGLOBIN 30.6 pg (27.0-33.4); MEAN CORPUSCULAR HGB CONC 33.4 g/dL (32.0-36.0); MEAN CORPUSCULAR VOLUME 92 fl (80-97); RED BLOOD COUNT 3.41 10^6/uL (3.72-5.28); RED CELL DISTRIBUTION WIDTH 15.9 % (11.5-14.0); WHITE BLOOD COUNT 7.9 10^3/uL (4.0-10.5)
[2016-07-20 16:53] LABS: APPEARANCE,URINE SLIGHTLY-CLOUDY; BILIRUBIN,URINE NEGATIVE (NEGATIVE); GLUCOSE, URINE NEGATIVE (NEGATIVE); KETONES,URINE NEGATIVE (NEGATIVE); LEUKOCYTE ESTERASE,URINE TRACE (NEGATIVE); NITRITE,URINE NEGATIVE (NEGATIVE); PROTEIN,URINE NEGATIVE (NEGATIVE)
[2016-07-20 17:02] LABS: BASOPHILS % (MANUAL) 0 % (0-2); EOSINOPHILS % (MANUAL) 2 % (0-6); LYMPHOCYTES % (MANUAL) 24 % (13-45); NUCLEATED RED BLOOD CELLS 1 /100 WBC (0); TOTAL CELLS COUNTED 100
[2016-07-20 17:03] LABS: BURR CELLS SLIGHT; OVALOCYTES SLIGHT; PLATELET CLUMPS PRESENT; POIKILOCYTOSIS 1+; POLYCHROMASIA SLIGHT
[2016-07-20 17:04] LABS: ALANINE AMINOTRANSFERASE 115 U/L (9-52); ALBUMIN 3.4 g/dL (3.5-5.0); ALKALINE PHOSPHATASE 154 U/L (38-126); ANION GAP 9 (5-19); ASPARTATE AMINO TRANSFERASE 50 U/L (14-36); BILIRUBIN,TOTAL 0.5 mg/dL (0.2-1.3); BLOOD UREA NITROGEN 18 mg/dL (7-20); CALCIUM 9.4 mg/dL (8.4-10.2); CARBON DIOXIDE 24 mmol/L (22-30); CHLORIDE 107 mmol/L (98-107); CREATININE RESULT 0.62 mg/dL (0.52-1.25); GLUCOSE 82 mg/dL (75-110); LDH 807 U/L (313-618); POTASSIUM 4.4 mmol/L (3.6-5.0); SODIUM 139.9 mmol/L (137-145); TOTAL PROTEIN 6.5 g/dL (6.3-8.2); URIC ACID 3.9 mg/dL (2.5-6.2)
--- NOTE | 2016-07-20 17:26 | ER Document Report ---
ED Blood Pressure Problem - General Chief Complaint: High Blood Pressure Stated Complaint: BLOOD PRESSURE PROBLEM Mode of Arrival: Ambulatory Notes: patient is a 31 year old female who was referred over to the ED from [facility] after her 1 week post visit with concern for preeclampsia. Patient states she went for her one-week visit. She had elevated blood pressures with systolics greater than 160. The physician decided to refer to the emergency department. She admits that it's time blurred vision but denies any headache, abdominal pain. She does have swelling in her lower extremities. She also admits to intermittent right hand tingling that lasted 15 minutes but then goes away. Only pain she admits to is around her incision which is healing well. Patient has a history of preeclampsia. States that her first she had preeclampsia. This she states she only had gestational diabetes this was not treated for preeclampsia. She denies any other past medical history Past surgical history significant for 2 Social history do [id number]. 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 IN LAST 30 DAYS: No - Related Data Allergies/Adverse Reactions: diphenhydramine HCl [From Benadryl] Allergy (Mild, Verified 07/13/16 11:25) Hives Past Medical History - General Information source: Patient - Social History Smoking Status: Current Every Day Smoker Chew tobacco use (# tins/day): No Frequency of alcohol use: None Drug Abuse: None Family History: Arthritis, CAD, CVA, DM, Hyperlipidemia, Hypertension, Malignancy Patient has suicidal ideation: No Patient has homicidal ideation: No Pulmonary Medical History: Reports: Hx Pneumonia Neurological Medical History: Reports: Hx Migraine Renal/ Medical History: Denies: Hx Peritoneal Dialysis Musculoskeltal Medical History: Reports Hx Musculoskeletal Trauma - multiple fractures Traumatic Medical History: Reports: Hx Fractures Past Surgical History: Reports: Hx Abdominal Surgery - hernia repair, Hx Inguinal Hernia - Immunizations Immunizations up to date: No Hx Diphtheria, Pertussis, Tetanus Vaccination: Yes Review of Systems - Review of Systems Constitutional: No symptoms reported EENT: See HPI Cardiovascular: No symptoms reported Respiratory: No symptoms reported Gastrointestinal: No symptoms reported Genitourinary: No symptoms reported Female Genitourinary: No symptoms reported Musculoskeletal: See HPI Skin: No symptoms reported Hematologic/Lymphatic: No symptoms reported Neurological/Psychological: No symptoms reported Physical Exam - Vital signs Vitals: Temp Pulse Resp BP Pulse Ox 97.8 F 74 18 165/98 H 99 07/20/16 16:00 07/20/16 16:00 07/20/16 16:00 07/20/16 16:00 07/20/16 16:00 - Notes Notes: PHYSICAL EXAM GENERAL: Alert, interacts well. HEAD: Normocephalic, atraumatic. EYES: Pupils equal, round, and reactive to light. Extraocular movements intact. ENT: Oral mucosa moist, tongue midline. NECK: Full range of motion. Supple. Trachea midline. LUNGS: Clear to auscultation bilaterally, no wheezes, rales, or rhonchi. No respiratory distress. HEART: Regular rate and rhythm. No murmurs, gallops, or rubs. ABDOMEN: Soft, . Nondistended, nontender. Suprapubic incision healing well without any erythema or induration No guarding, rebound, or rigidity.. Bowel sounds present in all 4 quadrants. EXTREMITIES: Moves all 4 extremities spontaneously. No edema, radial and dorsalis pedis pulses 2/4 bilaterally. No cyanosis. No clonus. 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 NEUROLOGICAL: Alert and oriented x4. Normal speech. PSYCH: Normal affect, normal mood. SKIN: Warm, dry, normal turgor. No rashes or lesions noted. Course - Re-evaluation Re-evalutation: 07/20/16 19:30 Since a 31-year-old female presents emergency department after referral from OB/ [employer]'s office for concerns of preeclampsia. Her urinalysis does not reveal any evidence of protein. Does have evidence of hemolytic anemia and elevated LFTs. Given patient's presentation and findings with supervising physician Dr. Miki Browning recommended to initiate magnesium and Tanisha. I consult to feels it is appropriate to admit the patient for preeclampsia management. I discussed this plan with the patient is agreeable. IV magnesium and IV labetalol being utilized for preeclampsia management also initiated all are and a Stoner was placed for I&O's. Per [facility] protocol and guidelines, this case was discussed with supervising physician Miki Browning prior to admission - Vital Signs Vital signs: Temp Pulse Resp BP Pulse Ox 97.8 F 74 25 H 143/89 H 100 07/20/16 16:00 07/20/16 16:00 07/20/16 19:15 07/20/16 19:15 07/20/16 19:15 - Laboratory Result Diagrams: 07/20/16 16:15 07/20/16 16:15 Laboratory results interpreted by me: 07/20/16 07/20/16 07/20/16 16:15 16:15 16:20 RBC 3.41 L Hgb 10.4 L Hct 31.3 L RDW 15.9 H AST 50 H ALT 115 H Alkaline Phosphatase 154 H Lactate Dehydrogenase 807 H Albumin 3.4 L Urine Blood SMALL H Urine Urobilinogen 2.0 H Ur Leukocyte Esterase TRACE H Discharge - Discharge Clinical Impression: Preeclampsia in period Condition: Stable Disposition: ADMITTED INPATIENT Admitting Provider: [facility] Unit Admitted: Labor and Delivery
[2016-07-20] MEDS ORDERED: MAGNESIUM SULFATE/D5W 100 ML IV SCH (17:30)
[2016-07-20] MEDS ORDERED: MAGNESIUM SULFATE 100 ML IV ONE (17:59)
[2016-07-20] MEDS ORDERED: HYDRALAZINE HCL INJ/PF 20 MG/1 ML SDV IV ONE ×2 (18:05→18:53)
[2016-07-20] MEDS ORDERED: LABETALOL HCL INJ 20 MG/4 ML DISP.SYRIN IV ONE ×3 (18:06→19:23)
[2016-07-20] MEDS ORDERED: MAGNESIUM SULFATE/D5W 100 ML IV ONE (18:15)
[2016-07-20] MEDS: RINGERS SOLUTION,LACTATED 1,000 ML IV PRN (23:20)
[2016-07-20] MEDS: MAGNESIUM SULFATE 20 GM/500 ML RTUINJ IV PRN (23:35)
[2016-07-21] MEDS: MAGNESIUM SULFATE 20 GM/500 ML RTUINJ IV PRN ×3 (02:36→09:21)
[2016-07-21] MEDS ORDERED: OXYCODONE-ACETAMINOPHEN 5-325 MG TABLET ONE (02:36)
[2016-07-21] MEDS: RINGERS SOLUTION,LACTATED 1,000 ML IV PRN ×2 (02:36→02:37)
[2016-07-21] MEDS ORDERED: OXYCODONE-ACETAMINOPHEN 5-325 MG TABLET PO ONE (03:00)
[2016-07-21] MEDS ORDERED: ACETAMINOPHEN 325 MG TABLET ONE (04:06)
[2016-07-21] MEDS ORDERED: ZOLPIDEM TARTRATE 5 MG TABLET ONE (04:08)
[2016-07-21] MEDS ORDERED: ZOLPIDEM TARTRATE 5 MG TABLET PO ONE (04:30)
--- NOTE | 2016-07-21 08:00 | L&D Flow Sheet ---
LD Flowsheet Datetime Report Generated by CPN: 07/21/2016 08:00 Datetime: 07/21/2016 07:57 NBP Sys/Crystal/Mean (mmHg): 141 (QS system process) : 75 (QS system process) : 102 (QS system process) Pulse: 69 (QS system process) Datetime: 07/21/2016 07:13 Stage of : (Sparkle Lilly, RN) Communication: RN at Bedside (Annotations: pt sleeping- left undisturbed @ present) (Sparkle Lilly RN) Datetime: 07/21/2016 07:12 Stage of : Antepartum (Sharon Caldera RN) Communication: Report Given to @ (Annotations: Meghann Hercules RN) (Sparkle Lilly RN) Notification Reason: Status Update; Pain; Maternal Vital Sign Change (Sharon Caldera RN) Communication Comments: Report given, pt care relinquished. (Sharon Caldera RN) Datetime: 07/21/2016 06:57 NBP Sys/Crystal/Mean (mmHg): 145 (QS system process) : 74 (QS system process) : 103 (QS system process) Pulse: 67 (QS system process) LaborFlag: Antepartum (QS system process) Datetime: 07/21/2016 06:55 Stage of : Antepartum (Crystal Werner, RN) Respirations: 16 (Crystal [place], RN) Level of Consciousness: Fully Conscious (Crystal [place], RN) DTR's/Clonus: DTRs 1+; No Clonus (Crystal Werner, RN) Headache: Generalized; Frontal (Crystal Werner, RN) Breath Sounds, Left: Clear and Equal (Crystal Werner, RN) Breath Sounds, Right: Clear and Equal (Crystal Werner, RN) Nausea/Vomiting: Denies (Crystal Werner, RN) RUQ Epigastric Pain: Denies (Crystal [place], RN) LaborFlag: Antepartum (QS system process) Datetime: 07/21/2016 05:57 NBP Sys/Crystal/Mean (mmHg): 126 (QS system process) : 66 (QS system process) : 90 (QS system process) Pulse: 70 (QS system process) LaborFlag: Antepartum (QS system process) Datetime: 07/21/2016 05:55 Stage of : Antepartum (Crystal [place], RN) Level of Consciousness: Fully Conscious (Crystal [place], RN) DTR's/Clonus: DTRs 1+; No Clonus (Crystal [place], RN) Headache: Pt sleeping at this time (Crystal [place], RN) Breath Sounds, Left: Clear and Equal (C[place], RN) Breath Sounds, Right: Clear and Equal (Crystal Werner, RN) Datetime: 07/21/2016 04:55 Level of Consciousness: Fully Conscious (Crystal Werner, RN) DTR's/Clonus: Pt sleeping (Crystal Werner, RN) Breath Sounds, Left: Clear and Equal (Crystal [place], RN) Breath Sounds, Right: Clear and Equal (Crystal Werner, RN) Datetime: 07/21/2016 04:32 NBP Sys/Crystal/Mean (mmHg): 135 (QS system process) : 72 (QS system process) : 98 (QS system process) Pulse: 70 (QS system process) LaborFlag: Antepartum (QS system process) Datetime: 07/21/2016 04:09 Stage of : Antepartum (Crystal [place], RN) Analgesics/Sedatives: Ambien (mg) @ (Annotations: 5mg PO to help with resting. ) (Crystal Werner, RN) Datetime: 07/21/2016 04:08 Stage of : Antepartum (Crystal [place], RN) Analgesics/Sedatives: Tylenol (mg) @ (Annotations: 650 mg po for headache 5/5) (Crystal [place], RN) Datetime: 07/21/2016 04:02 Stage of : Antepartum (Sharon Caldera RN) NBP Sys/Crystal/Mean (mmHg): 123 (QS system process) : 70 (QS system process) : 90 (QS system process) Pulse: 67 (QS system process) Communication: Provider Orders Received (Sharon Caldera RN) Provider Notified (Name): Dr. Mcbride (Sharon Caldera RN) Notification Reason: Pain (Sharon Caldera RN) Communication Comments: Notified Dr. Mcbride of pt headache 5/5 after persocet, received orders for 5mg ambien PO to facilitate rest. (Sharon Caldera RN) LaborFlag: Antepartum (QS system process) Datetime: 07/21/2016 03:55 Respirations: 16 (Sharon [place], RN) Level of Consciousness: Fully Conscious (Sharon Becerraergrass RN) DTR's/Clonus: DTRs 1+; No Clonus (Sharon [place], RN) Headache: Frontal (Annotations: 5/5) (Sharon Becerraergadalid RN) Breath Sounds, Left: Clear and Equal (Sharon [place], RN) Breath Sounds, Right: Clear and Equal (Sharon [place], RN) Nausea/Vomiting: Denies (Crystal Werner, RN) RUQ Epigastric Pain: Denies (Sharon [place], RN) LaborFlag: Antepartum (QS system process) Datetime: 07/21/2016 03:32 NBP Sys/Crystal/Mean (mmHg): 135 (QS system process) : 75 (QS system process) : 98 (QS system process) Pulse: 68 (QS system process) LaborFlag: Antepartum (QS system process) Datetime: 07/21/2016 03:02 NBP Sys/Crystal/Mean (mmHg): 131 (QS system process) : 68 (QS system process) : 93 (QS system process) Pulse: 66 (QS system process) LaborFlag: Antepartum (QS system process) Datetime: 07/21/2016 02:55 Level of Consciousness: Fully Conscious (Crystal Werner, RN) DTR's/Clonus: DTRs 1+; No Clonus (Crystal [place], RN) Headache: Generalized (Crystal Werner, RN) Breath Sounds, Right: Clear and Equal (Crystal [place], RN) Nausea/Vomiting: Denies (Crystal Werner, RN) RUQ Epigastric Pain: Denies (Crystal [place], RN) Datetime: 07/21/2016 02:38 Stage of : Antepartum (Crystal Werner, RN) Analgesics/Sedatives: Percocet 5mg/325mg PO for headache 4/5. (Crystal Werner, RN) Datetime: 07/21/2016 02:32 NBP Sys/Crystal/Mean (mmHg): 112 (QS system process) : 62 (QS system process) : 81 (QS system process) Pulse: 67 (QS system process) LaborFlag: Antepartum (QS system process) Datetime: 07/21/2016 02:30 Stage of : Antepartum (Sharon Caldera RN) Communication: Provider Orders Received (Sharon Caldera RN) Provider Notified (Name): Dr. Mcbride (Sharon Caldera RN) Notification Reason: Status Update; Pain; Lab/Diagnostic Study (Sharon Caldera RN) Communication Comments: Notified Dr. Mcbride of pt status and headache 5. Received orders for percocet 5-325 mg PO x 1 now. (Sharon Caldera RN) Datetime: 07/21/2016 02:02 NBP Sys/Crystal/Mean (mmHg): 132 (QS system process) : 75 (QS system process) : 98 (QS system process) Pulse: 75 (QS system process) LaborFlag: Antepartum (QS system process) Datetime: 07/21/2016 01:55 Level of Consciousness: Fully Conscious (Crystal Werner, RN) DTR's/Clonus: DTRs 1+; No Clonus (Crystal [place], RN) Headache: Generalized (Crystal Werner, RN) Breath Sounds, Left: Clear and Equal (Crystal [place], RN) Breath Sounds, Right: Clear and Equal (Crystal [place], RN) Nausea/Vomiting: Denies (Crystal Werner, RN) RUQ Epigastric Pain: Denies (Crystal [place], RN) Datetime: 07/21/2016 01:32 NBP Sys/Crystal/Mean (mmHg): 128 (QS system process) : 66 (QS system process) : 91 (QS system process) Pulse: 80 (QS system process) LaborFlag: Antepartum (QS system process) Datetime: 07/21/2016 01:02 NBP Sys/Crystal/Mean (mmHg): 126 (QS system process) : 67 (QS system process) : 89 (QS system process) Pulse: 70 (QS system process) LaborFlag: Antepartum (QS system process) Datetime: 07/21/2016 00:55 Level of Consciousness: Fully Conscious (Crystal [place], RN) DTR's/Clonus: DTRs 2+; No Clonus (Crystal Werner, RN) Headache: Denies (Crystal Werner, RN) Breath Sounds, Left: Clear and Equal (Crystal Werner, RN) Breath Sounds, Right: Clear and Equal (Crystal [place], RN) Nausea/Vomiting: Denies (Crystal [place], RN) RUQ Epigastric Pain: Denies (Crystal [place], RN) Datetime: 07/21/2016 00:41 Stage of : Antepartum (Sharon Caldera, RN) Communication Comments: FOB returned baby to nursery. (Sharon [place]om[place], RN) Datetime: 07/21/2016 00:32 NBP Sys/Crystal/Mean (mmHg): 131 (QS system process) : 84 (QS system process) : 102 (QS system process) Pulse: 70 (QS system process) LaborFlag: Antepartum (QS system process) Datetime: 07/21/2016 00:03 Stage of : Antepartum (Sharon Caldera, RN) Communication Comments: Baby in room from nursery. (Sharon Caldera, RN) Datetime: 07/21/2016 00:02 NBP Sys/Crystal/Mean (mmHg): 127 (QS system process) : 78 (QS system process) : 97 (QS system process) Pulse: 74 (QS system process) LaborFlag: Antepartum (QS system process) Datetime: 07/20/2016 23:55 Level of Consciousness: Fully Conscious (Crystal Werner, RN) DTR's/Clonus: DTRs 2+; No Clonus (Crystal Werner, RN) Headache: Denies (Crystal [place], RN) Breath Sounds, Left: Clear and Equal (Crystal [place], RN) Breath Sounds, Right: Clear and Equal (Crystal [place], RN) Datetime: 07/20/2016 23:30 NBP Sys/Crystal/Mean (mmHg): 136 (QS system process) : 86 (QS system process) : 106 (QS system process) Pulse: 77 (QS system process) LaborFlag: Antepartum (QS system process) Datetime: 07/20/2016 23:26 Procedures: Consents Signed (Crystal [place], RN) Datetime: 07/20/2016 23:15 NBP Sys/Crystal/Mean (mmHg): 132 (QS system process) : 78 (QS system process) : 100 (QS system process) Pulse: 66 (QS system process) LaborFlag: Antepartum (QS system process) Datetime: 07/20/2016 23:10 Magnesium/Antihypertensives: Magnesium Sulfate IV (Gm/hr) @ (Annotations: 2 g/hour.) (Sharon Caldera RN) Datetime: 07/20/2016 22:55 Pain Scale: 0 (Sharon Caldera RN) Pain Presence: None/Denies (Sharon Caldera RN) Pain Type: N/A (Sharon Caldera RN) Pain Goal: 1 (Sharon Caldera RN) Pain Relief Measures: Comfort Measures (Sharon Caldera RN) Level of Consciousness: Fully Conscious (Sharon Caldera RN) DTR's/Clonus: DTRs 2+; No Clonus (Sharon Caldera RN) Headache: Denies (Sharon Caldera RN) Breath Sounds, Left: Clear and Equal (Sharon Caldera RN) Breath Sounds, Right: Clear and Equal (Sharon Caldera RN) Nausea/Vomiting: Denies (Sharon Caldera RN) RUQ Epigastric Pain: Denies (Sharon Caldera RN) IV/Blood Work: IV Infusing per Order (Sharon Caldera RN) Oxygen Amount : 0 (Sharon Caldera RN) Oxygen Method: Room Air (Sharon Caldera RN) Patient Position/Activity: Semi-Fowlers (Sharon Caldera RN) Comfort Measures: Family Support (Sharon Caldera RN) Instructional Method: Verbal; Patient Instructed; Verbalized Understanding (Sharon Caldera RN) Plan of Care: Plan of Care Discussed (Sharon Caldera RN) Unit Routine: [place] to Room; Call Min; Bed; Visiting Policy; Waiting Areas; Phone/Cell Phone Use; Unit Personnel; Handwashing; IV Pumps; Safety/Fall Risk Prevention; Diet/Nutrition Services; Bathroom Privileges; Medications (Sharon Caldera RN) Pain Management: PRN Medications; Pain Scale/Goals; Comfort Measures (Sharon Caldera RN) Related: Nutrition; Hydration; Activity and Rest (Sharon Caldera RN) LaborFlag: Antepartum (QS system process) Datetime: 07/20/2016 22:51 Stage of : Antepartum (Sharon Caldera RN)
--- NOTE | 2016-07-21 10:00 | L&D Flow Sheet ---
LD Flowsheet Datetime Report Generated by CPN: 07/21/2016 10:00 Datetime: 07/21/2016 09:00 Stage of : (Sparkle Lilly RN) Respirations: 16 (Sparkle Lilly RN) Pain Scale: 3 (Sparkle Lilly RN) Pain Presence: Constant (Sparkle Lilly RN) Pain Type: Sharp; Ache (Sparkle Lilly RN) Pain Location: Head (Sparkle Lilly RN) Pain Relief Measures: Comfort Measures (Annotations: SLEEPING) (Sparkle Lilly RN) Pain Coping: Sleeping (Sparkle Lilly RN) Level of Consciousness: AWAKENS EASILY (Sparkle Lilly RN) DTR's/Clonus: DTRs 1+; No Clonus (Sparkle Lilly RN) Headache: Generalized (Annotations: 3/5 SCALE) (Sparkle Lilly RN) Nausea/Vomiting: Denies (Sparkle Lilly RN) RUQ Epigastric Pain: Denies (Sparkle Lilly RN) Magnesium/Antihypertensives: Magnesium Sulfate IV (Gm/hr) @ (Annotations: 2) (Sparkle Lilly RN) IV/Blood Work: IV Infusing per Order (Sparkle Lilly RN) Oxygen Method: Room Air (Sparkle Lilly RN) Patient Position/Activity: Supine (Sparkle Lilly RN) Comfort Measures: Family Support (Sparkle Lilly RN) I/O Interventions: Ice Chips Given (Sparkle Lilly RN) Communication: RN at Bedside (Sparkle Lilly RN) Datetime: 07/21/2016 08:57 NBP Sys/Crystal/Mean (mmHg): 119 (QS system process) : 69 (QS system process) : 90 (QS system process) Pulse: 68 (QS system process) Datetime: 07/21/2016 08:00 Stage of : (Sparkle Lilly RN) Respirations: 18 (Sparkle Lilly RN) Pain Scale: 3 (Sparkle Lilly RN) Pain Presence: Constant (Sparkle Lilly RN) Pain Type: Sharp; Ache (Sparkle Lilly RN) Pain Location: Head (Sparkle Lilly RN) Pain Goal: 1 (Sparkle Lilly RN) Pain Relief Measures: Comfort Measures (Sparkle Lilly RN) Level of Consciousness: AWAKENS EASILY (Sparkle Lilly RN) DTR's/Clonus: DTRs 1+; No Clonus (Sparkle Lilly RN) Headache: Generalized (Annotations: 3/5 PAIN SCALE) (Sparkle Lilly RN) Breath Sounds, Left: Clear and Equal (Sparkle Lilly RN) Breath Sounds, Right: Clear and Equal (Sparkle Lilly RN) Nausea/Vomiting: Denies (Sparkle Lilly RN) RUQ Epigastric Pain: Denies (Sparkle Lilly RN) Magnesium/Antihypertensives: Magnesium Sulfate IV (Gm/hr) @ (Annotations: 2) (Sparkel Lilly RN) IV/Blood Work: IV Infusing per Order (Sparkle Lilly RN) Oxygen Method: Room Air (Sparkle Lilly RN) Patient Position/Activity: Left Lateral (Sparkle Lilly RN) Comfort Measures: Family Support (Sparkle Lilly RN) Instructional Method: Verbal; Patient Instructed; Family/Support Person Instructed; Verbalized Understanding (Sparkle Lilly RN) Plan of Care: Plan of Care Discussed; Gestational Hypertension/Preeclampsia/Eclampsia (Sparkle Lilly RN) Unit Routine: Unit Personnel; Diet/Nutrition Services (Sparkle Lilly RN) Pain Management: Pain Scale/Goals; Comfort Measures (Sparkle Lilly RN) Medications: Magnesium Sulfate (Sparkle Lilly RN) Related: Nutrition; Hydration (Sparkle Lilly, CORAZ[place]) Communication: RN at Bedside (Sparkle Lilly RN)
[2016-07-21] MEDS ORDERED: BUTALB/ACETAMINOPHEN/CAFFEINE 1 TAB EACH PO PRN (10:07)
[2016-07-21] MEDS ORDERED: BUTALB/ACETAMINOPHEN/CAFFEINE 1 TAB EACH ONE (10:26)
[2016-07-21 10:27] LABS: ALANINE AMINOTRANSFERASE 84 U/L (9-52); ALBUMIN 3.1 g/dL (3.5-5.0); ALKALINE PHOSPHATASE 150 U/L (38-126); ANION GAP 10 (5-19); ASPARTATE AMINO TRANSFERASE 32 U/L (14-36); BILIRUBIN,TOTAL 0.4 mg/dL (0.2-1.3); BLOOD UREA NITROGEN 10 mg/dL (7-20); CALCIUM 7.2 mg/dL (8.4-10.2); CARBON DIOXIDE 23 mmol/L (22-30); CHLORIDE 105 mmol/L (98-107); CREATININE RESULT 0.62 mg/dL (0.52-1.25); GLUCOSE 99 mg/dL (75-110); LDH 699 U/L (313-618); POTASSIUM 4.1 mmol/L (3.6-5.0); SODIUM 137.5 mmol/L (137-145); TOTAL PROTEIN 6.2 g/dL (6.3-8.2); URIC ACID 4.3 mg/dL (2.5-6.2)
[2016-07-21 10:31] LABS: ABSOLUTE EOSINOPHILS # (AUTO) 0.1 10^3/uL (0.0-0.6); ABSOLUTE LYMPHOCYTES (AUTO) 1.2 10^3/uL (0.5-4.7); ABSOLUTE MONOCYTES (AUTO) 0.4 10^3/uL (0.1-1.4); ABSOLUTE NEUT (AUTO) 4.7 10^3/uL (1.7-8.2); BASOPHILS % (AUTO) 0.4 % (0-2); EOSINOPHILS % (AUTO) 1.9 % (0-6); HEMATOCRIT 29.7 % (36.0-47.0); HGB HCT DIFFERENCE 0.3; LYMPHOCYTES % (AUTO) 19.1 % (13-45); MEAN CORPUSCULAR HEMOGLOBIN 30.5 pg (27.0-33.4); MEAN CORPUSCULAR HGB CONC 33.6 g/dL (32.0-36.0); MEAN CORPUSCULAR VOLUME 91 fl (80-97); MONOCYTES % (AUTO) 6.1 % (3-13); RED BLOOD COUNT 3.27 10^6/uL (3.72-5.28); RED CELL DISTRIBUTION WIDTH 15.4 % (11.5-14.0); SEGMENTED NEUTROPHILS % (AUTO) 72.5 % (42-78); WHITE BLOOD COUNT 6.4 10^3/uL (4.0-10.5)
--- NOTE | 2016-07-21 12:00 | L&D Flow Sheet ---
LD Flowsheet Datetime Report Generated by CPN: 07/21/2016 12:00 Datetime: 07/21/2016 11:57 NBP Sys/Crystal/Mean (mmHg): 144 (QS system process) : 90 (QS system process) : 112 (QS system process) Pulse: 65 (QS system process) Datetime: 07/21/2016 11:00 Stage of : (Sparkle Lilly, RN) Respirations: 18 (Sparkle Lilly, RN) Pain Scale: 3 (Sparkle Deborah Roulund, RN) Pain Presence: Constant (Sparkle Lilly, [place]) Pain Type: Sharp; Ache (Sparkle Lilly, [place]) Pain Location: Head (Sparkle Lilly RN) Pain Relief Measures: Comfort Measures (Sparkle Lilly RN) Level of Consciousness: DOZING (Sparkle Lilly, [place]) DTR's/Clonus: DTRs 1+; No Clonus (Sparkle Lilly, [place]) Headache: Generalized (Annotations: 3/5 SCALE) (Sparkle Lilly RN) Nausea/Vomiting: Denies (Sparkle Lilly, [place]) RUQ Epigastric Pain: Denies (Sparkle Lilly, [place]) Magnesium/Antihypertensives: Magnesium Sulfate IV (Gm/hr) @ (Annotations: 2) (Sparkle Lilly RN) IV/Blood Work: IV Infusing per Order (Sparkle Lilly RN) Oxygen Method: Room Air (Sparkle Lilly RN) Patient Position/Activity: Low Fowlers (Sparkle Lilly RN) Comfort Measures: Family Support (Sparkle Lilly, [place]) Communication: RN at Bedside (Sparkle Lilly RN) Datetime: 07/21/2016 10:57 NBP Sys/Crystal/Mean (mmHg): 135 (QS system process) : 76 (QS system process) : 99 (QS system process) Pulse: 69 (QS system process) Datetime: 07/21/2016 10:28 Stage of : (Sparkle Lilly RN) Pain Scale: 3 (Sparkle Lilly RN) Pain Presence: Constant (Sparkle Lilly RN) Pain Type: Sharp; Ache (Sparkle Lilly RN) Pain Location: Head (Sparkle Lilly RN) Pain Relief Measures: Pain Medication Given; Comfort Measures (Sparkle iLlly RN) Analgesics/Sedatives: FIOROCET 2 TABS PO GIVEN @ 1028 (Sparkle Lilly RN) Instructional Method: Verbal; Patient Instructed; Verbalized Understanding (Sparkle Lilly RN) Plan of Care: Plan of Care Discussed (Sparkle Lilly RN) Unit Routine: Medications (Annotations: FIOROCET EFFECTS) (Sparkle Lilly RN) Pain Management: Pain Scale/Goals; Comfort Measures (Sparkle Lilly RN) Related: Nutrition; Hydration (Sparkle Lilly RN) Communication: RN at Bedside (Sparkle Lilly RN) Datetime: 07/21/2016 10:01 NBP Sys/Crystal/Mean (mmHg): 143 (QS system process) : 91 (QS system process) : 111 (QS system process) Pulse: 72 (QS system process) Datetime: 07/21/2016 10:00 Stage of : (Sparkle Lilly RN) Respirations: 18 (Sparkle Lilly RN) Temperature (F): 97.4 (Sparkle Lilly RN) Temperature (C): 36.3 (QS system process) Temperature Route: Axillary (Sparkle Lilly RN) Pain Scale: 3 (Sparkle Lilly RN) Pain Presence: Constant (Sparkle Lilly RN) Pain Type: Sharp; Ache (Sparkle Lilly RN) Pain Location: Head (Sparkle Lilly RN) Pain Relief Measures: Comfort Measures (Sparkle Lilly RN) Level of Consciousness: Fully Conscious (Sparkle Lilly RN) DTR's/Clonus: DTRs 1+; No Clonus (Sparkle Lilly RN) Headache: Generalized (Annotations: 3/5 scale) (Sparkle Lilly RN) Breath Sounds, Left: Clear and Equal (Sparkle Lilly RN) Breath Sounds, Right: Clear and Equal (Sparkle Lilly RN) Nausea/Vomiting: Denies (Sparkle Lilly RN) RUQ Epigastric Pain: Denies (Sparkle Lilly RN) Magnesium/Antihypertensives: Magnesium Sulfate IV (Gm/hr) @ (Annotations: 2) (Sparkle Lilly RN) IV/Blood Work: IV Infusing per Order (Sparkle Lilly, [place]) Oxygen Method: Room Air (Sparkle Lilly, [place]) Patient Position/Activity: Semi-Fowlers (Sparkle Lilly, [place]) Comfort Measures: Family Support (Sparkle Lilly, [place]) I/O Interventions: Clear Liquids Given (Sparkle Lilly RN) Communication: RN at Bedside (Sparkle Lilly RN)
--- NOTE | 2016-07-21 14:00 | L&D Flow Sheet ---
LD Flowsheet Datetime Report Generated by CPN: 07/21/2016 14:00 Datetime: 07/21/2016 13:43 NBP Sys/Crystal/Mean (mmHg): 142 (QS system process) : 85 (QS system process) : 109 (QS system process) Pulse: 65 (QS system process) Datetime: 07/21/2016 13:16 Stage of : (Sparkle Lilly, RN) Communication: Call/Page Placed to Provider (Sparkle Lilly, RN) Datetime: 07/21/2016 13:13 NBP Sys/Crystal/Mean (mmHg): 146 (QS system process) : 97 (QS system process) : 117 (QS system process) Pulse: 72 (QS system process) Datetime: 07/21/2016 13:00 Stage of : (Sparkle Lilly RN) Respirations: 20 (Sparkle Lilly RN) Pain Scale: 4.5 (Sparkle Lilly RN) Pain Presence: Constant (Sparkle Lilly RN) Pain Type: Sharp; Ache (Sparkle Lilly RN) Pain Location: Head (Sparkle Lilly RN) Pain Relief Measures: Comfort Measures (Sparkle Lilly RN) Pain Coping: Requesting Pain Medication or Epidural; Crying (Sparkle Lilly RN) Level of Consciousness: Fully Conscious (Sparkle Lilly RN) DTR's/Clonus: DTRs 1+; No Clonus (Sparkle Lilly RN) Headache: Generalized (Annotations: 4.5/5 SCALE) (Sparkle Lilly RN) Nausea/Vomiting: Denies (Sparkle Lilly RN) RUQ Epigastric Pain: Denies (Sparkle Lilly, [place]) IV/Blood Work: IV Infusing per Order (Sparkle Lilly RN) Oxygen Method: Room Air (Sparkle Lilly RN) Patient Position/Activity: Semi-Fowlers (Sparkle Lilly, [place]) Comfort Measures: Hot/Cold Pack; Family Support (Sparkle Lilly RN) I/O Interventions: Clear Liquids Given (Sparkle Lilly, [place]) Communication: RN at Bedside (Sparkle Lilly RN) Datetime: 07/21/2016 12:57 NBP Sys/Crystal/Mean (mmHg): 158 (QS system process) : 99 (QS system process) : 122 (QS system process) Pulse: 81 (QS system process) Datetime: 07/21/2016 12:00 Stage of : (Sparkle Lilly RN) Pain Scale: 3 (Sparkle Lilly RN) Pain Presence: Constant (Sparkle Lilly RN) Pain Type: Sharp; Ache (Sparkle Lilly RN) Pain Location: Head (Sparkle Lilly RN) Pain Relief Measures: Comfort Measures (Sparkle Lilly RN) Level of Consciousness: Fully Conscious (Sparkle Lilly RN) DTR's/Clonus: DTRs 1+; No Clonus (Sparkle Lilly RN) Headache: Generalized (Sparkle Lilly RN) Breath Sounds, Left: Clear and Equal (Sparkle Lilly RN) Breath Sounds, Right: Clear and Equal (Sparkle Lilly RN) Nausea/Vomiting: Denies (Sparkle Lilly RN) RUQ Epigastric Pain: Denies (Sparkle Lilly RN) Magnesium/Antihypertensives: Magnesium Sulfate IV (Gm/hr) @ (Annotations: 2) (Sparkle Lilly RN) IV/Blood Work: IV Infusing per Order (Sparkle Lilly RN) Oxygen Method: Room Air (Sparkle Lilly RN) Patient Position/Activity: Low Fowlers (Sparkle Lilly, [place]) Comfort Measures: Family Support (Sparkle Lilly RN) Communication: RN at Bedside (Sparkle Lilly RN)
--- NOTE | 2016-07-21 16:01 | L&D Flow Sheet ---
LD Flowsheet Datetime Report Generated by CPN: 07/21/2016 16:00 Datetime: 07/21/2016 15:50 NBP Sys/Crystal/Mean (mmHg): 146 (QS system process) : 97 (QS system process) : 117 (QS system process) Pulse: 62 (QS system process) LaborFlag: Antepartum (QS system process) Datetime: 07/21/2016 15:03 Communication: Report Given to [facility] (Aye Morley [facility]) Notification Reason: Lab/Diagnostic Study (Aye Peyman, RNC) Communication Comments: Adebayo Coello CNM notified of Magnesium Critical Value of 6.5, no new orders received. (Aye Morley, RNC) Datetime: 07/21/2016 15:00 Stage of : Antepartum (Sparkle Lilly RN) Respirations: 16 (Sparkle Lilly RN) Pain Scale: 4.5 (Sparkle Lilly RN) Pain Presence: Constant (Sparkle Lilly RN) Pain Type: Sharp; Ache (Sparkle Lilly RN) Pain Location: Head (Sparkle Lilly RN) Pain Relief Measures: Comfort Measures (Sparkle Lilly RN) Level of Consciousness: Fully Conscious (Sparkle Lilly RN) DTR's/Clonus: DTRs 1+; No Clonus (Sparkle Lilly, [place]) Headache: Generalized (Sparkle Lilly RN) Nausea/Vomiting: Denies (Sparkle Lilly RN) RUQ Epigastric Pain: Denies (Sparkle Lilly, [place]) Magnesium/Antihypertensives: Magnesium Sulfate IV (Gm/hr) @ (Annotations: 2) (Sparkle Lilly RN) IV/Blood Work: IV Infusing per Order (Sparkle Lilly RN) Oxygen Method: Room Air (Sparkle Lilly RN) Patient Position/Activity: Left Extreme (Sparkle Lilly RN) Comfort Measures: Family Support (Sparkle Lilly RN) Communication: RN at Bedside (Sparkle Lilly RN) Communication Comments: TO RADIOLOGY FOR CT SCAN (Sparkle Lilly RN) LaborFlag: Antepartum (QS system process) Datetime: 07/21/2016 14:43 NBP Sys/Crystal/Mean (mmHg): 129 (QS system process) : 80 (QS system process) : 99 (QS system process) Pulse: 73 (QS system process) LaborFlag: Antepartum (QS system process) Datetime: 07/21/2016 14:13 NBP Sys/Crystal/Mean (mmHg): 129 (QS system process) : 74 (QS system process) : 94 (QS system process) Pulse: 77 (QS system process) LaborFlag: Antepartum (QS system process) Datetime: 07/21/2016 14:00 Stage of : Antepartum (Sparkle Lilly RN) Respirations: 18 (Sparkle Lilly RN) Temperature (F): 98.4 (Sparkle Lilly RN) Temperature (C): 36.9 (QS system process) Temperature Route: Oral (Sparkle Lilly RN) Pain Scale: 4.5 (Sparkle Lilly RN) Pain Presence: Constant (Sparkle Lilly RN) Pain Type: Sharp; Ache (Sparkle Lilly RN) Pain Location: Head (Sparkle Lilly RN) Pain Relief Measures: Comfort Measures (Sparkle Lilly RN) Pain Coping: TRYING TO DOZE (Sparkle Lilly RN) Level of Consciousness: Fully Conscious (Sparkle Lilly RN) DTR's/Clonus: DTRs 1+; No Clonus (Sparkle Lilly RN) Headache: Generalized (Sparkle Lilly RN) Breath Sounds, Left: Clear and Equal (Sparkle Lilly RN) Breath Sounds, Right: Clear and Equal (Sparkle Lilly RN) Nausea/Vomiting: Denies (Sparkle Lilly RN) RUQ Epigastric Pain: Denies (Sparkle Lilly RN) Magnesium/Antihypertensives: Magnesium Sulfate IV (Gm/hr) @ (Annotations: 2) (Sparkle Lilly RN) IV/Blood Work: IV Infusing per Order (Sparkle Lilly RN) Oxygen Method: Room Air (Sparkle Lilly RN) Patient Position/Activity: Left Extreme (Sparkle Lilly RN) Comfort Measures: Family Support (Sparkle Lilly RN) Communication: RN at Bedside (Sparkle Lilly RN) LaborFlag: Antepartum (QS system process)
[2016-07-21] MEDS ORDERED: NIFEDIPINE 30 MG TAB.ER.24 PO ONE ×2 (16:33→16:37)
[2016-07-21] MEDS ORDERED: IBUPROFEN 800 MG TABLET PO ONE (16:33)
[2016-07-21] MEDS ORDERED: IBUPROFEN 800 MG TABLET ONE (16:36)
--- NOTE | 2016-07-21 16:48 | PDOC CONSULTATION ---
Consultation Consult Date: 07/21/16 Attending physician:: LADY YEE Consult reason:: Right-sided weakness, possible stroke History of Present Illness Admission Date/PCP: 07/20/16 18:39 WOODROW ESPAÑA MD Patient complains of: Right arm weakness History of Present Illness: HERNAN HUBER is a 31 year old female who delivered a baby approximately 1 week ago after having placental abruption. The patient was sitting on the toilet and was having some bleeding and fell forward after losing consciousness and hit her right sided forehead. She presented emergency room and was found to have placental abruption and went for an emergent . At that time she had complaints of right arm weakness and was seen by Dr. Mcmullen of the hospitalist service for concern of a CVA. Was felt that this was not related to an acute CVA with a negative head CT. The patient has continued to have complaints of right arm weakness. The patient was discharged home after her C- section however she re-presented with elevated blood pressures and is being treated for preeclampsia and is currently on IV magnesium. The patient's blood pressure elevated when she presented this time however they are currently in the normal range. The patient complains of having pain in her right forehead and complains of right arm and right leg weakness. She denies any sensory changes. Patient denies any change in her vision and has difficulty talking because of generalized weakness. On exam she is found to have right arm and right leg weakness however is not clear if she was cooperating completely. She had repeat head CT done earlier today which shows no evidence for any acute event although this was a noncontrasted study. Past Medical History Cardiac Medical History: Reports: None Pulmonary Medical History: Reports: Pneumonia Neurological Medical History: Reports: Migraine Endocrine Medical History: Reports: None Renal/ Medical History: Reports: None Malignancy Medical History: Reports: None GI Medical History: Reports: None Musculoskeltal Medical History: Reports: None Skin Medical History: Reports: None Hematology: Reports: None Infectious Medical History: Reports: None Past Surgical History Past Surgical History: Reports: Section Social History Information Source: Patient Lives with: Spouse/Significant other Smoking Status: Current Every Day Smoker Frequency of Alcohol Use: None Drugs: None Hx Prescription Drug Abuse: No Family History Family History: Arthritis, CAD, CVA, DM, Hyperlipidemia, Hypertension, Malignancy Family History: Father's 58 alive and has hypertension. Mother at age 54 from lung cancer. Parental Family History Reviewed: Yes Children Family History Reviewed: No Sibling(s) Family History Reviewed.: No Medication/Allergy Home Medications: Ferrous Sulfate [Feosol 325 mg Tablet] 325 mg PO TID 07/20/16 Ibuprofen [Motrin 800 mg Tablet] 800 mg PO Q6H 07/20/16 Oxycodone HCl/Acetaminophen [Percocet 5-325 mg Tablet] 2 tab PO Q4HP PRN Allergies/Adverse Reactions: diphenhydramine HCl [From Benadryl] Allergy (Mild, Verified 07/13/16 11:25) Hives Review of Systems Constitutional: PRESENT: headache(s). ABSENT: fever(s), night sweats Eyes: ABSENT: visual disturbances Ears: ABSENT: hearing changes Cardiovascular: ABSENT: chest pain, dyspnea on exertion, edema, orthropnea, palpitations Respiratory: ABSENT: cough, hemoptysis Genitourinary: PRESENT: other - Has a Stoner in place Neurological: PRESENT: as per HPI Physical Exam Vital Signs: Temp Pulse Resp BP Pulse Ox 97.8 F 74 18 125/81 98 07/20/16 16:00 07/20/16 16:00 07/20/16 22:24 07/20/16 22:24 07/20/16 22:24 General appearance: PRESENT: no acute distress Head exam: PRESENT: atraumatic, normocephalic Eye exam: PRESENT: conjunctiva pink. ABSENT: scleral icterus Mouth exam: PRESENT: moist, tongue midline Neck exam: ABSENT: carotid bruit, JVD, lymphadenopathy, thyromegaly Neurological exam: PRESENT: alert, awake, oriented to person, oriented to place , oriented to time, oriented to situation, CN II-XII grossly intact, motor sensory deficit - Patient has right arm and right leg weakness for out of 5 strength. She reports that she cannot stand because she is too weak Psychiatric exam: PRESENT: flat affect Results Laboratory Results: 07/21/16 09:59 07/21/16 09:59 07/21/16 07/21/16 07/21/16 09:59 09:59 09:59 WBC 6.4 RBC 3.27 L Hgb 10.0 L Hct 29.7 L MCV 91 MCH 30.5 MCHC 33.6 RDW 15.4 H Plt Count 205 Seg Neutrophils % 72.5 Lymphocytes % 19.1 Monocytes % 6.1 Eosinophils % 1.9 Basophils % 0.4 Absolute Neutrophils 4.7 Absolute Lymphocytes 1.2 Absolute Monocytes 0.4 Absolute Eosinophils 0.1 Absolute Basophils 0.0 Sodium 137.5 Potassium 4.1 Chloride 105 Carbon Dioxide 23 Anion Gap 10 BUN 10 Creatinine 0.62 Est GFR ( Amer) > 60 Est GFR (Non-Af Amer) > 60 Glucose 99 Uric Acid 4.3 Calcium 7.2 L Magnesium 6.5 H* Total Bilirubin 0.4 AST 32 ALT 84 H Alkaline Phosphatase 150 H Total Protein 6.2 L Albumin 3.1 L Impressions: Head CT 07/21/16 00:00 IMPRESSION: NORMAL BRAIN CT WITHOUT CONTRAST. Assessment & Plan - Diagnosis (1) Weakness of right arm Is this a current diagnosis for this admission?: YesPlan: Patient does have a weak right arm and leg. I'm not sure how cooperative she was with the exam. Patient had a head CT done today which was unremarkable and had one done about a week ago also which was unremarkable. If this was an acute CVA it would be expected that it which show up on a delayed head CT. The patient's neck is supple and is unlikely that she has any type of cervical cord injury given the fact that it is unilateral. Would recommend a brain MRI just to be complete to show there is no acute CVA. The possibility of this representing some type of condition such as MS is considered but is unlikely. If it was a demyelinating disorder as the cause of her symptoms, more fluctuation in her symptoms would be expected. If there is any demyelination, it should be evident on the MRI. If the MRI is unremarkable and she continues to have symptoms I would recommend neurology consultation. (2) Preeclampsia in period Is this a current diagnosis for this admission?: YesPlan: Patient is on IV magnesium. This could contribute to the weakness however we would not expect it to be unilateral. (3) Anemia Qualifiers: Anemia type: unspecified type Qualified Code(s): D64.9 - Anemia, unspecified Is this a current diagnosis for this admission?: Yes - Time Time Spent: 50 to 70 Minutes - Plan Summary Plan Summary: Recommend brain MRI. If this is unremarkable and the patient continues to have symptoms I would recommend neurology consultation.
--- NOTE | 2016-07-21 18:00 | L&D Flow Sheet ---
LD Flowsheet Datetime Report Generated by CPN: 07/21/2016 18:00 Datetime: 07/21/2016 17:36 NBP Sys/Crystal/Mean (mmHg): 141 (QS system process) : 83 (QS system process) : 107 (QS system process) Pulse: 67 (QS system process) LaborFlag: Antepartum (QS system process) Datetime: 07/21/2016 17:06 NBP Sys/Crystal/Mean (mmHg): 165 (QS system process) : 98 (QS system process) : 126 (QS system process) Pulse: 67 (QS system process) LaborFlag: Antepartum (QS system process) Datetime: 07/21/2016 17:00 Stage of : Antepartum (Sparkle Lilly RN) Respirations: 18 (Sparkle Lilly RN) Pain Scale: 4.5 (Sparkle Lilly RN) Pain Presence: Constant (Sparkle Lilly RN) Pain Type: Sharp; Ache (Sparkle Lilly RN) Pain Location: Head (Sparkle Lilly RN) Pain Relief Measures: Pain Medication Given; Comfort Measures (Sparkle Lilly RN) Level of Consciousness: AWAKENS EASILY- APPEARS LESS LETHARGIC (Sparkle Lilly RN) DTR's/Clonus: DTRs 1+; No Clonus (Sparkle Lilly RN) Headache: Generalized (Sparkle Lilly RN) Nausea/Vomiting: Denies (Sparkle Lilly RN) RUQ Epigastric Pain: Denies (Sparkle Lilly RN) IV/Blood Work: IV Infusing per Order (Sparkle Lilly RN) Oxygen Method: Room Air (Sparkle Lilly RN) Patient Position/Activity: Left Lateral (Sparkle Lilly RN) Communication: RN at Bedside (Sparkle Lilly RN) LaborFlag: Antepartum (QS system process) Datetime: 07/21/2016 16:39 Stage of : Antepartum (Sparkle Lilly RN) NBP Sys/Crystal/Mean (mmHg): 155 (QS system process) : 95 (QS system process) : 118 (QS system process) Pulse: 59 (QS system process) Respirations: 16 (Sparkle Lilly RN) Magnesium/Antihypertensives: procardia xl 30 mg po @ 1639 (Sparkle Lilly RN) Analgesics/Sedatives: motrin 800 mg po @ 1639 (Sparkle Lilly RN) Communication: RN at Bedside (Sparkle Lilly RN) LaborFlag: Antepartum (QS system process) Datetime: 07/21/2016 16:36 NBP Sys/Crystal/Mean (mmHg): 153 (QS system process) : 94 (QS system process) : 118 (QS system process) Pulse: 64 (QS system process) LaborFlag: Antepartum (QS system process) Datetime: 07/21/2016 16:15 Stage of : Antepartum (Sparkle Lilly, CORAZON) Magnesium/Antihypertensives: Magnesium Sulfate Discontinued (Sparkle Lilly RN) IV/Blood Work: IV Infusing per Order (Annotations: IVF @ 125 ML/HR) (Sparkle Lilly, CORAZON) Instructional Method: Verbal; Patient Instructed; Family/Support Person Instructed; Verbalized Understanding (Sparkle Lilly RN) Plan of Care: Plan of Care Discussed (Annotations: D/C MAGNESIUM SULFATE, AWAITING POC FROM DR YEE- SPOUSE VERBALIZES UNDERSTANDING.) (Sparkle Lilly RN) Communication: RN at Bedside; Provider Orders Received; Report Given to @ (Annotations: DR YEE GIVEN REPORT OF PT HAVING BEEN EVALUATED BY HOSPITALIST, MAGNESIUM LEVEL 6.5, PT INCREASING LETHARGY. MAGNESIUM SULFATE D/C.) (Sparkle Lilly RN) Datetime: 07/21/2016 16:06 NBP Sys/Crystal/Mean (mmHg): 148 (QS system process) : 94 (QS system process) : 116 (QS system process) Pulse: 70 (QS system process) LaborFlag: Antepartum (QS system process) Datetime: 07/21/2016 16:00 Stage of : Antepartum (Sparkle Lilly RN) Pain Scale: 4.5 (Sparkle Lilly RN) Pain Presence: Constant (Sparkle Lilly RN) Pain Type: Sharp; Ache (Sparkle Lilly, CORAZON) Pain Location: Head (Sparkle Lilly RN) Pain Relief Measures: Comfort Measures (Sparkle Lilly, [place]) Level of Consciousness: Lethargy (Sparkle Lilly RN) DTR's/Clonus: DTRs 1+; No Clonus (Sparkle Lilly, COR[place]) Headache: Generalized (Sparkle Lilly RN) Breath Sounds, Left: Clear and Equal (Sparkle Lilly RN) Breath Sounds, Right: Clear and Equal (Sparkle Lilly, CORAZ[place]) Nausea/Vomiting: Denies (Sparkle Lilly RN) RUQ Epigastric Pain: Denies (Sparkle Lilly, CORAZON) Magnesium/Antihypertensives: Magnesium Sulfate IV (Gm/hr) @ (Annotations: 2) (Sparkle Lilly RN) IV/Blood Work: IV Infusing per Order (Sparkle Lilly, CORAZ[place]) Oxygen Method: Room Air (Sparkle Lilly, [place]AZON) Patient Position/Activity: Low Fowlers (Sparkle Lilly, [place]ON) Comfort Measures: Family Support (Sparkle Lilly, COR[place]ON) Consults: HOSPITALIST @ BS TO EVALUATE PT- POC DISCUSSED. (Sparkle Lilly, CORAZON) Communication: RN at Bedside (Sparkle Lilly RN) LaborFlag: Antepartum (QS system process)
--- NOTE | 2016-07-21 20:00 | L&D Flow Sheet ---
LD Flowsheet Datetime Report Generated by CPN: 07/21/2016 20:00 Datetime: 07/21/2016 19:36 NBP Sys/Crystal/Mean (mmHg): 136 (QS system process) : 88 (QS system process) : 106 (QS system process) Pulse: 74 (QS system process) LaborFlag: Antepartum (QS system process) Datetime: 07/21/2016 19:18 Level of Consciousness: Fully Conscious (Crystal Werner, RN) DTR's/Clonus: DTRs 1+; No Clonus (Crystal [place], RN) Headache: Generalized (Crystal Werner, RN) Breath Sounds, Left: Clear and Equal (Crystal [place], RN) Breath Sounds, Right: Clear and Equal (Crystal [place], RN) Nausea/Vomiting: Denies (Crystal [place], RN) RUQ Epigastric Pain: Denies (Crystal [place], RN) Datetime: 07/21/2016 19:06 NBP Sys/Crystal/Mean (mmHg): 163 (QS system process) : 95 (QS system process) : 120 (QS system process) Pulse: 84 (QS system process) LaborFlag: Antepartum (QS system process) Datetime: 07/21/2016 18:55 Stage of : Antepartum (Sparkle Lilly RN) Respirations: 18 (Sparkle Lilly RN) Pain Scale: 3 (Sparkle Lilly RN) Pain Presence: Constant (Sparkle Lilly RN) Pain Type: Sharp; Ache (Sparkle Lilly RN) Pain Location: Head (Sparkle Lilly RN) Pain Relief Measures: Comfort Measures (Sparkle Lilly, [place]) Level of Consciousness: Fully Conscious (Annotations: talking, smiling, laughing) (Sparkle Lilly RN) IV/Blood Work: IV Saline Locked (Sparkle Lilly, RN) Patient Position/Activity: High Fowlers (Sparkle Lilly, [place]) Communication: RN at Bedside (Sparkle Lilly RN) Communication Comments: pt given dinner trY (Sparkle Lilly RN) LaborFlag: Antepartum (QS system process) Datetime: 07/21/2016 18:36 NBP Sys/Crystal/Mean (mmHg): 127 (QS system process) : 69 (QS system process) : 92 (QS system process) Pulse: 71 (QS system process) LaborFlag: Antepartum (QS system process) Datetime: 07/21/2016 18:06 Stage of : Antepartum (Sparkle Lilly RN) NBP Sys/Crystal/Mean (mmHg): 148 (QS system process) : 81 (QS system process) : 106 (QS system process) Pulse: 81 (QS system process) Respirations: 18 (Sparkle Lilly RN) Pain Scale: 3 (Sparkle Lilly RN) Pain Presence: Constant (Sparkle Lilly RN) Pain Type: Sharp; Ache (Sparkle Lilly RN) Pain Location: Head (Sparkle Lilly RN) Pain Relief Measures: Comfort Measures (Sparkle Lilly RN) Level of Consciousness: Fully Conscious (Sparkle Lilly RN) IV/Blood Work: IV Infusing per Order (Sparkle Lilly RN) Oxygen Method: Room Air (Sparkle Lilly RN) Patient Position/Activity: Left Lateral (Sparkle Lilly RN) Instructional Method: Verbal; Patient Instructed; Verbalized Understanding (Sparkle Lilly RN) Plan of Care: Plan of Care Discussed (Annotations: encouraged pt to move more in bed and eat dinner. holman catheter will be d/c after pt is stronger and able to walk without assist- pt verbalizes understanding.) (Sparkle Lilly RN) Communication: RN at Bedside (Sparkle Lilly RN) LaborFlag: Antepartum (QS system process)
[2016-07-21] MEDS: ACETAMINOPHEN 325 MG TABLET PO PRN (20:28)
--- NOTE | 2016-07-21 20:49 | Admission Physical ---
Datetime Report Generated by CPN: 07/21/2016 20:49 CURRENT ADMISSION Chief Complaint: Signs/Symptoms Gestational HTN; Other Chief Complaint: Uterine Contractions; Vaginal Bleeding; Other Chief Complaint Other: Abruption, NRFHTs, Maternal Hypotension Indication for Induction: Not Applicable Admit Impression- Other: preeclampsia-1 wk s/p for abruption-bps 160s/110s in ER and clinic before bp meds. Admit Plan: Admit to Unit; Initiate Section Protocol ALLERGIES Medication Allergies: diphenhydramine HCl/VA/Hives (07/13/2016) Medication Allergies: diphenhydramine HCl/VA/Hives (06/06/2013) OBSTETRICAL HISTORY EDC: 08/18/2016 00:00 : 2 Para: 1 Livin Cesareans: 1 PHYSICAL EXAM General: Normal General: Normal HEENT: Normal HEENT: Normal Neurologic: Normal Neurologic: Normal Thyroid: Normal Thyroid: Normal Heart: Normal Heart: Normal Lungs: Normal Lungs: Normal Breast: Normal Breast: Deferred Back: Normal Back: Normal Abdomen: Normal Abdomen: Normal Genitourinary Exam: Normal Genitourinary Exam: Normal Extremities: Normal Extremities: Normal DTRs: Normal DTRs: Normal Pelvic Type: Adequate Pelvic Type: Adequate Physical Exam Comments: ast/alt 50/115, ldh 807 Physical Exam Comments: vaginal bleeding Vital Signs: Reviewed VAGINAL EXAM Dilatation: 0 FETUS A EGA: 35.6 EGA: 34.6 Monitoring: External US Decelerations: None FHR Category: Category III FHR Comments: NRFHTs, Bradycardia Admit Comment: preeclmapsia with elevated lfts and ldh admit for magnesium seizure prophylaxis,serial labs, will likely need po bp meds Admit Comment: 31yo at 34+6ega presented via ER with Hypotension and ctx and vaginal bleeding. Pt was taken from the ER immediately upstairs to L_D for above. FHR noted to be in the 50s. She was taken back to the OR for Emergency section due to abruption and NRFHTs. c/b polyhydramnios, non compliant GDM, anemia, poor weight gain (16#), smoker (1/2 ppd). Prior C/S in 2013 - at 39wks for preE and induced ( reported urgent c/s at that time as well). INFORMED CONSENT Informed Consent Obtained: Section Delivery; Risks, Benefits and Alternatives Discussed Signature: with User ID: [email or web address] Signature: with User ID: Bonnie : with User ID: Bonnie
--- NOTE | 2016-07-21 22:00 | L&D Flow Sheet ---
LD Flowsheet Datetime Report Generated by CPN: 07/21/2016 22:00 Datetime: 07/21/2016 20:23 Stage of : Antepartum (Crystal [place], RN) Datetime: 07/21/2016 20:20 Stage of : Antepartum (Crystal [place], RN) Communication Comments: Pt returned to L_ D with RN. (Crystal Werner, RN)
[2016-07-22] MEDS: ACETAMINOPHEN 325 MG TABLET PO PRN (06:16)
[2016-07-22 06:56] LABS: ABSOLUTE EOSINOPHILS # (AUTO) 0.1 10^3/uL (0.0-0.6); ABSOLUTE LYMPHOCYTES (AUTO) 1.6 10^3/uL (0.5-4.7); ABSOLUTE MONOCYTES (AUTO) 0.4 10^3/uL (0.1-1.4); ABSOLUTE NEUT (AUTO) 4.6 10^3/uL (1.7-8.2); BASOPHILS % (AUTO) 0.4 % (0-2); EOSINOPHILS % (AUTO) 1.7 % (0-6); HEMATOCRIT 29.4 % (36.0-47.0); HEMOGLOBIN 9.8 g/dL (12.0-15.5); LYMPHOCYTES % (AUTO) 23.2 % (13-45); MEAN CORPUSCULAR HEMOGLOBIN 30.4 pg (27.0-33.4); MEAN CORPUSCULAR HGB CONC 33.5 g/dL (32.0-36.0); MEAN CORPUSCULAR VOLUME 91 fl (80-97); MONOCYTES % (AUTO) 6.5 % (3-13); RED BLOOD COUNT 3.24 10^6/uL (3.72-5.28); RED CELL DISTRIBUTION WIDTH 15.6 % (11.5-14.0); SEGMENTED NEUTROPHILS % (AUTO) 68.2 % (42-78); WHITE BLOOD COUNT 6.7 10^3/uL (4.0-10.5)
--- NOTE | 2016-07-22 07:00 | L&D Flow Sheet ---
LD Flowsheet Datetime Report Generated by CPN: 07/22/2016 07:00 Datetime: 07/21/2016 20:23 Stage of : Antepartum (Crystal [place], RN) Datetime: 07/21/2016 20:20 Stage of : Antepartum (Crystal [place], RN) Communication Comments: Pt returned to L_ D with RN. (Crystal Werner, RN) Datetime: 07/21/2016 19:45 Stage of : Antepartum (Crystal Werner, RN) Communication Comments: Monitors DC pt transported to MRI by RN. (Crystal Werner, RN) Datetime: 07/21/2016 19:36 NBP Sys/Crystal/Mean (mmHg): 136 (QS system process) : 88 (QS system process) : 106 (QS system process) Pulse: 74 (QS system process) LaborFlag: Antepartum (QS system process) Datetime: 07/21/2016 19:18 Level of Consciousness: Fully Conscious (Crystal [place], RN) DTR's/Clonus: DTRs 1+; No Clonus (Crystal Werner, RN) Headache: Generalized (Crystal [place], RN) Breath Sounds, Left: Clear and Equal (Crystal Werner, RN) Breath Sounds, Right: Clear and Equal (Crystal Werner, RN) Nausea/Vomiting: Denies (Crystal [place], RN) RUQ Epigastric Pain: Denies (Crystal [place], RN) Datetime: 07/21/2016 19:06 NBP Sys/Crystal/Mean (mmHg): 163 (QS system process) : 95 (QS system process) : 120 (QS system process) Pulse: 84 (QS system process) LaborFlag: Antepartum (QS system process)
[2016-07-22 07:22] LABS: ALANINE AMINOTRANSFERASE 68 U/L (9-52); ALKALINE PHOSPHATASE 128 U/L (38-126); ANION GAP 6 (5-19); ASPARTATE AMINO TRANSFERASE 22 U/L (14-36); BILIRUBIN,TOTAL 0.2 mg/dL (0.2-1.3); BLOOD UREA NITROGEN 12 mg/dL (7-20); CALCIUM 7.8 mg/dL (8.4-10.2); CARBON DIOXIDE 24 mmol/L (22-30); CHLORIDE 108 mmol/L (98-107); CREATININE RESULT 0.62 mg/dL (0.52-1.25); GLUCOSE 82 mg/dL (75-110); LDH 701 U/L (313-618); POTASSIUM 4.7 mmol/L (3.6-5.0); SODIUM 137.7 mmol/L (137-145); TOTAL PROTEIN 5.9 g/dL (6.3-8.2); URIC ACID 3.6 mg/dL (2.5-6.2)
--- NOTE | 2016-07-22 09:53 | PDOC DISCHARGE SUMMARY ---
General - Admit/Disc Date/PCP Admission Date/Primary Care Provider: 07/20/16 18:39 WOODROW ESPAÑA MD Discharge Date: 07/22/16 - Discharge Diagnosis (1) Preeclampsia in period Is this a current diagnosis for this admission?: Yes (2) Weakness of right arm Is this a current diagnosis for this admission?: Yes (3) Atypical migraine Is this a current diagnosis for this admission?: Yes (4) S/P emergency section Is this a current diagnosis for this admission?: Yes - Additional Information Home Medications: Ferrous Sulfate [Feosol 325 mg Tablet] 325 mg PO TID 07/20/16 Ibuprofen [Motrin 800 mg Tablet] 800 mg PO Q6H 07/20/16 Oxycodone HCl/Acetaminophen [Percocet 5-325 mg Tablet] 2 tab PO Q4HP PRN History of Present Illness History of Present Illness: HERNAN HUBER is a 31 year old female Hospital Course Hospital Course: patient has responded well to treatment with magnesium. labs are trending down appropriately and blood pressures appear to be resolved. Weakness is present intermittently and per the patient today was present even prior to . MRI/CT scans have both been normal. Physical Exam - Physical Exam Vital Signs: Temp Pulse Resp BP Pulse Ox 98.3 F 80 16 122/70 100 07/22/16 07:36 07/22/16 07:36 07/22/16 07:36 07/22/16 07:36 07/22/16 07:36 Intake & Output 07/21/16 07/22/16 07/23/16 06:59 06:59 06:59 Intake Total 960 Output Total 1200 Balance -240 Weight 50.8 kg General appearance: PRESENT: no acute distress, cooperative Head exam: PRESENT: atraumatic, normocephalic Eye exam: PRESENT: conjunctiva pink, PERRLA Mouth exam: PRESENT: moist Teeth exam: PRESENT: dental caries GI/Abdominal exam: PRESENT: soft, tenderness - appropriate for post surgical state Musculoskeletal exam: PRESENT: ambulatory Neurological exam: PRESENT: alert, awake, oriented to person, oriented to place , oriented to time, reflexes normal, CN II-XII grossly intact Result Laboratory Results: 07/22/16 06:02 07/22/16 06:02 07/21/16 07/21/16 07/21/16 09:59 09:59 09:59 WBC 6.4 RBC 3.27 L Hgb 10.0 L Hct 29.7 L MCV 91 MCH 30.5 MCHC 33.6 RDW 15.4 H Plt Count 205 Seg Neutrophils % 72.5 Lymphocytes % 19.1 Monocytes % 6.1 Eosinophils % 1.9 Basophils % 0.4 Absolute Neutrophils 4.7 Absolute Lymphocytes 1.2 Absolute Monocytes 0.4 Absolute Eosinophils 0.1 Absolute Basophils 0.0 Sodium 137.5 Potassium 4.1 Chloride 105 Carbon Dioxide 23 Anion Gap 10 BUN 10 Creatinine 0.62 Est GFR ( Amer) > 60 Est GFR (Non-Af Amer) > 60 Glucose 99 Uric Acid 4.3 Calcium 7.2 L Magnesium 6.5 H* Total Bilirubin 0.4 AST 32 ALT 84 H Alkaline Phosphatase 150 H Total Protein 6.2 L Albumin 3.1 L 07/22/16 07/22/16 06:02 06:02 WBC 6.7 RBC 3.24 L Hgb 9.8 L Hct 29.4 L MCV 91 MCH 30.4 MCHC 33.5 RDW 15.6 H Plt Count 212 Seg Neutrophils % 68.2 Lymphocytes % 23.2 Monocytes % 6.5 Eosinophils % 1.7 Basophils % 0.4 Absolute Neutrophils 4.6 Absolute Lymphocytes 1.6 Absolute Monocytes 0.4 Absolute Eosinophils 0.1 Absolute Basophils 0.0 Sodium 137.7 Potassium 4.7 Chloride 108 H Carbon Dioxide 24 Anion Gap 6 BUN 12 Creatinine 0.62 Est GFR ( Amer) > 60 Est GFR (Non-Af Amer) > 60 Glucose 82 Uric Acid 3.6 Calcium 7.8 L Magnesium Total Bilirubin 0.2 AST 22 ALT 68 H Alkaline Phosphatase 128 H Total Protein 5.9 L Albumin 3.0 L Impressions: Head CT 07/21/16 00:00 IMPRESSION: NORMAL BRAIN CT WITHOUT CONTRAST. Head MRI 07/21/16 16:26 IMPRESSION: NORMAL MRI OF THE BRAIN WITHOUT INTRAVENOUS GADOLINIUM CONTRAST. Plan Discharge Plan: hospitalist has seen patient and recommendations for neurology consult will be coordinated at outpatient follow up at [facility] next week. Pt given strict precautions for reasons to return for evaluation. Time Spent: Less than 30 Minutes
[2016-07-22] MEDS ORDERED: NIFEDIPINE 30 MG TAB.ER.24 PO SCH (10:00)
[2016-07-22 10:18] VITALS: BP 152/90
== END 2016-07-22 11:45 | disposition home or self-care (01) | DRG 776 ==
LOC: ER 15:55 → EH 18:39 → UNDOADMIN 18:39 → LR 22:54 → 2N 07-21 20:48
PROVIDERS: ADMIT Specialist; ATTEND Specialist
DX: O14.95 Unspecified pre-eclampsia, complicating the puerperium (principal); O99.355 Diseases of the nervous system complicating the puerperium; G43.909 Migraine, unspecified, not intractable, without status migrainosus; O99.335 Smoking (tobacco) complicating the puerperium; F17.200 Nicotine dependence, unspecified, uncomplicated; O90.81 Anemia of the puerperium; D64.9 Anemia, unspecified; R53.1 Weakness; R51 Headache; W18.11XA Fall from or off toilet without subsequent striking against object, initial encounter; Z82.49 Family history of ischemic heart disease and other diseases of the circulatory system; Z82.3 Family history of stroke; Z83.3 Family history of diabetes mellitus; Z82.61 Family history of arthritis; Z80.1 Family history of malignant neoplasm of trachea, bronchus and lung; Z88.8 Allergy status to other drugs, medicaments and biological substances
CPT/HCPCS: 36415; 70450; 70551; 80053; 81001; 82570; 83615; 83735; 84156; 84550; 85025; 99285; J3475; J3490

== ENCOUNTER 2017-01-18 02:35 | Emergency (ER) | payer SELFPAY ==
[2017-01-18 02:42] VITALS: BP 148/101
[2017-01-18] MEDS ORDERED: VALACYCLOVIR HCL 500 MG TABLET PO ONE (03:15)
[2017-01-18] MEDS ORDERED: PREDNISONE 20 MG TABLET PO ONE (03:15)
--- NOTE | 2017-01-18 03:29 | ER Document Report ---
ED ENT - General Chief Complaint: Ear Pain Stated Complaint: EAR PAIN Time Seen by Provider: 01/18/17 03:05 Notes: Patient is a 31 year old female that comes to the ED for chief complaint of difficulty closing her right eye and numbness along the right side of her face including her lips, cheeks, and forehead. Symptoms started earlier today. She also states that she stuck a ear cleaning device in her right ear and had pain when she did it, she denies ear pain at this time. She denies bleeding from the ear or hearing loss. She denies headache, fever, neck stiffness, or any other symptoms. She takes no daily medications. LMP within the past 2 weeks. She denies any medical history other than hernia repair and orthopedic surgeries. TRAVEL OUTSIDE OF THE [place] IN LAST 30 DAYS: No - Related Data Allergies/Adverse Reactions: diphenhydramine HCl [From Benadryl] Allergy (Mild, Verified 01/18/17 02:40) Hives Past Medical History - General Information source: Patient - Social History Smoking Status: Never Smoker Drug Abuse: None Lives with: Family Family History: Arthritis, CAD, CVA, DM, Hyperlipidemia, Hypertension, Malignancy Patient has suicidal ideation: No Patient has homicidal ideation: No Pulmonary Medical History: Reports: Hx Pneumonia Neurological Medical History: Reports: Hx Migraine Renal/ Medical History: Denies: Hx Peritoneal Dialysis Musculoskeltal Medical History: Reports Hx Musculoskeletal Trauma - multiple fractures Traumatic Medical History: Reports: Hx Fractures Past Surgical History: Reports: Hx Abdominal Surgery - hernia repair, Hx Section, Hx Inguinal Hernia - Immunizations Immunizations up to date: No Hx Diphtheria, Pertussis, Tetanus Vaccination: Yes Review of Systems - Review of Systems Constitutional: No symptoms reported EENT: See HPI Cardiovascular: No symptoms reported Respiratory: No symptoms reported Gastrointestinal: No symptoms reported Genitourinary: No symptoms reported Female Genitourinary: No symptoms reported Musculoskeletal: No symptoms reported Skin: No symptoms reported Hematologic/Lymphatic: No symptoms reported Neurological/Psychological: See HPI Physical Exam - Vital signs Vitals: Temp Pulse Resp BP Pulse Ox 98.7 F 71 20 148/101 H 98 01/18/17 02:40 01/18/17 02:40 01/18/17 02:40 01/18/17 02:40 01/18/17 02:40 Interpretation: Normal - General General appearance: Appears well, Alert In distress: None - HEENT Head: Normocephalic, Atraumatic Eyes: Normal Conjunctiva: Normal Extraocular movements intact: Yes Eyelashes: Normal Pupils: PERRL Ears: Normal External canal: No: Normal - Moderately large amount of cerumen in both ear canals, no blood, no signs of trauma, unremarkable tympanic membrane in the partly can be visualized, normal exam otherwise Tympanic membrane: Normal Sinus: Normal Nasal: Normal Mouth/Lips: Normal Mucous membranes: Normal Pharynx: Normal Neck: Normal - Respiratory Respiratory status: No respiratory distress Chest status: Nontender Breath sounds: Normal Chest palpation: Normal - Cardiovascular Rhythm: Regular. No: Tachycardia Heart sounds: Normal auscultation, S1 appreciated, S2 appreciated Murmur: No - Abdominal Inspection: Normal Distension: No distension Bowel sounds: Normal Tenderness: Nontender. No: Tender, Guarding Organomegaly: No organomegaly - Back Back: Normal, Nontender - Extremities General upper extremity: Normal inspection, Nontender, Normal color, Normal ROM , Normal temperature General lower extremity: Normal inspection, Nontender, Normal color, Normal ROM , Normal temperature, Normal weight bearing. No: Sudhir's sign - Neurological Neuro grossly intact: Yes Cognition: Normal Orientation: AAOx4 O[place] Coma Scale Eye Opening: Spontaneous [place] Coma Scale Verbal: Oriented [place] Coma Scale Motor: Obeys Commands Oark Coma Scale Total: 15 Speech: Normal Cranial nerves: Facial palsy - There is right sided facial palsy with inability to raise right eyebrow, flattened forehead, numbness over the right cheek, paralysis along the right of both lips, and difficulty closing right eyelid. 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 She does have examination consistent with Min's palsy. Neurological examination is otherwise normal. CAT scan of the head is not indicated because of this. Ear examination shows some cerumen but is otherwise unremarkable. Patient was placed on treatment for Min's palsy, acyclovir will be used instead of Valtrex because of the shane and patient stating she is not sure if she has insurance that will cover medications. Discussed follow-up and return precautions with patient. She states understanding and agreement. - Vital Signs Vital signs: Temp Pulse Resp BP Pulse Ox 98.7 F 71 20 148/101 H 98 01/18/17 02:40 01/18/17 02:40 01/18/17 02:40 01/18/17 02:40 01/18/17 02:40 Discharge - Discharge Clinical Impression: Right facial numbness Excessive cerumen in ear canal Qualifiers: Laterality: bilateral Qualified Code(s): H61.23 - Impacted cerumen, bilateral Condition: Stable Disposition: HOME, SELF-CARE Additional Instructions: Your examination is consistent with Min's palsy, this is thought to be a virus causing paralysis of the facial nerve, take the treatment for this as prescribed , this can prevent symptoms from worsening and help symptoms return to normal faster. Place earwax drops such as Murine ear [id number] and your ears and irrigate them in the bath to treat ear wax. Follow-up with primary care. Return to emergency department for any concerning symptoms. Prescriptions: Acyclovir [Acyclovir 400 mg Tablet] 2 tab PO ASDIR #70 tablet Prednisone 60 mg PO DAILY #21 tablet Forms: Return to Work
== END 2017-01-18 03:40 | disposition home or self-care (01) ==
LOC: ER 02:35
DX: H61.23 Impacted cerumen, bilateral (principal); R20.0 Anesthesia of skin
CPT/HCPCS: 99282; J7512

== ENCOUNTER 2018-04-15 11:38 | Emergency (ER) | payer SELFPAY ==
[2018-04-15 11:47] VITALS: BP 117/86
--- NOTE | 2018-04-15 12:08 | ER Document Report ---
ED General - General Chief Complaint: Shortness Of Breath Stated Complaint: SHORTNESS OF BREATH Time Seen by Provider: 04/15/18 12:03 Mode of Arrival: Ambulatory Information source: Patient Notes: Chief complaint: Itchy scalp History of complain:( obtained from----patient) 31 years old female presents today with itchy scalp thinking it is about bite. And also locking of the fingers. Needed prescription for asthma. No fever chills or other constitutional symptoms Onset: Gradual Duration: Last several days Severity: Mild Quality: Itchy Context: None Exacerbating factor and relieving factors: None REVIEW OF SYSTEMS: CONSTITUTIONAL : Denies fever, chills, or sweats. Denies recent illness. EENT: Denies eye, ear, throat, or mouth pain or symptoms. Denies nasal or sinus congestion or discharge. Denies throat, tongue, or mouth swelling or difficulty swallowing. CARDIOVASCULAR: Denies chest pain. Denies palpitations or racing or irregular heart beat. Denies ankle edema. RESPIRATORY: Denies cough, cold, or chest congestion. Denies shortness of breath, difficulty breathing, or wheezing. GASTROINTESTINAL: Denies distention. Denies nausea, vomiting, or diarrhea. Denies blood in vomitus, stools, or per rectum. Denies black, tarry stools. Denies constipation. GENITOURINARY: Denies difficulty urinating, painful urination, burning, frequency, blood in urine, or discharge. FEMALE GENITOURINARY: Denies vaginal bleeding, heavy or abnormal periods, irregular periods. Denies vaginal discharge or odor. MUSCULOSKELETAL: Denies back or neck pain or stiffness. Denies joint pain or swelling. SKIN: Denies rash, lesions or sores. HEMATOLOGIC : Denies easy bruising or bleeding. LYMPHATIC: Denies swollen, enlarged glands. NEUROLOGICAL: Denies confusion or altered mental status. Denies passing out or loss of consciousness. Denies dizziness or lightheadedness. Denies headache. Denies weakness or paralysis or loss of use of either side. Denies problems with gait or speech. Denies sensory loss, numbness, or tingling. Denies seizures. PSYCHIATRIC: Denies anxiety or stress. Denies depression, suicidal ideation, or homicidal ideation. ALL OTHER SYSTEMS REVIEWED AND NEGATIVE. PHYSICAL EXAMINATION: GENERAL: Well-appearing, well-nourished and in no acute distress. HEAD: Atraumatic, normocephalic. Except scaly rash noted over the posterior part of the scalp EYES: Pupils equal round and reactive to light, extraocular movements intact, conjunctiva are normal. ENT: Nares patent, oropharynx clear without exudates. Moist mucous membranes. NECK: Normal range of motion, supple without lymphadenopathy LUNGS: Breath sounds clear to auscultation bilaterally and equal. No wheezes rales or rhonchi. HEART: Regular rate and rhythm without murmurs ABDOMEN: Soft, nontender, nondistended abdomen. No guarding, no rebound. No masses appreciated. Examination of genitals-deferred Musculoskeletal: Normal range of motion, no pitting or edema. No cyanosis. NEUROLOGICAL: Cranial nerves grossly intact. Normal speech, normal gait. Normal sensory, motor exams PSYCH: Normal mood, normal affect. SKIN: Warm, Dry, normal turgor, no rashes or lesions noted. Dictation was performed using [employer] voice recognition software TRAVEL OUTSIDE OF THE [place] IN LAST 30 DAYS: No COUNTRY TRAVELED TO/FROM: [facility] Notes: Dictated - Related Data Allergies/Adverse Reactions: diphenhydramine HCl [From Benadryl] Allergy (Mild, Verified 04/15/18 11:39) Hives Past Medical History - Social History Smoking Status: Current Every Day Smoker Frequency of alcohol use: Rare Drug Abuse: Bath salts Family History: Reviewed & Not Pertinent, Arthritis, CAD, CVA, DM, Hyperlipidemia, Hypertension, Malignancy Patient has suicidal ideation: No Patient has homicidal ideation: No Pulmonary Medical History: Reports: Hx Pneumonia Neurological Medical History: Reports: Hx Migraine Renal/ Medical History: Denies: Hx Peritoneal Dialysis Musculoskeletal Medical History: Reports Hx Musculoskeletal Trauma - multiple fractures Traumatic Medical History: Reports: Hx Fractures Past Surgical History: Reports: Hx Abdominal Surgery - hernia repair, Hx Section, Hx Inguinal Hernia - Immunizations Immunizations up to date: No Hx Diphtheria, Pertussis, Tetanus Vaccination: Yes Review of Systems - Review of Systems Notes: Dictated Physical Exam - Vital signs Vitals: Temp Pulse Resp BP Pulse Ox 98.5 F 93 18 117/86 H 94 04/15/18 11:42 04/15/18 11:42 04/15/18 11:42 04/15/18 11:42 04/15/18 11:42 - Notes Notes: Dictated Course - Vital Signs Vital signs: Temp Pulse Resp BP Pulse Ox 98.5 F 93 18 117/86 H 94 04/15/18 11:42 04/15/18 11:42 04/15/18 11:42 04/15/18 11:42 04/15/18 11:42 Discharge - Discharge Clinical Impression: Contact dermatitis scalp Asthma Qualifiers: Asthma severity: mild Asthma persistence: intermittent Asthma complication type : uncomplicated Qualified Code(s): J45.20 - Mild intermittent asthma, uncomplicated Condition: Fair Disposition: HOME, SELF-CARE Instructions: Contact Dermatitis ([facility]), Asthma ([facility]) Prescriptions: Albuterol Sulfate [Proair Hfa Inhalation Aerosol 8.5 gm Mdi] 1 puff IH Q4 PRN # 1 mdi PRN Reason: Betamethasone Dipropionate [Betamethasone Dipropionate Lotion] 1 applic TP DAILY PRN #1 bottle PRN Reason: Prednisone [Sterapred Ds] 1 pkg PO ASDIR PRN 6 Days [email or web address] PRN Reason: Forms: Return to Work
== END 2018-04-15 12:09 | disposition home or self-care (01) ==
LOC: ER 11:38
DX: L25.9 Unspecified contact dermatitis, unspecified cause (principal); J45.20 Mild intermittent asthma, uncomplicated; M65.30 Trigger finger, unspecified finger; R06.02 Shortness of breath; F17.200 Nicotine dependence, unspecified, uncomplicated
CPT/HCPCS: 99284

== ENCOUNTER 2019-04-23 05:31 | Emergency (ER) | payer SELFPAY ==
--- NOTE | 2019-04-23 09:17 | ER Document Report ---
ED ENT - General Chief Complaint: Sore Throat Stated Complaint: THROAT SWELLING Time Seen by Provider: 04/23/19 09:13 Primary Care Provider: [facility] [Outside] - Follow up as needed TRAVEL OUTSIDE OF THE [place] IN LAST 30 DAYS: No COUNTRY TRAVELED TO/FROM: [facility] Notes: 33 year old female to the ED with C/O nasal congestion, cough, sore throat for the past 5 days. States it started off as nasal congestion and cough and in the past two days, patient's sore throat has gotten a lot of worse. States that it feels "like glass" when she swallows. Denies fevers, chills. Has tried OTC meds without any relief. Denies any other complaints. - Related Data Allergies/Adverse Reactions: diphenhydramine HCl [From Benadryl] Allergy (Mild, Verified 04/23/19 09:33) Hives Home Medications: doxycycline Past Medical History - General Information source: Patient - Social History Smoking Status: Current Every Day Smoker Frequency of alcohol use: None Drug Abuse: None Lives with: Family Family History: Reviewed & Not Pertinent, Arthritis, CAD, CVA, DM, Hyperlipidemia, Hypertension, Malignancy Patient has suicidal ideation: No Patient has homicidal ideation: No Pulmonary Medical History: Reports: Hx Pneumonia Neurological Medical History: Reports: Hx Migraine Renal/ Medical History: Denies: Hx Peritoneal Dialysis Musculoskeletal Medical History: Reports Hx Musculoskeletal Trauma - multiple fractures Traumatic Medical History: Reports: Hx Fractures Past Surgical History: Reports: Hx Abdominal Surgery - hernia repair, Hx Section, Hx Inguinal Hernia - Immunizations Immunizations up to date: No Hx Diphtheria, Pertussis, Tetanus Vaccination: Yes Review of Systems - Review of Systems Constitutional: denies: Chills, Fever EENT: Nose congestion, Nose discharge, Sinus pressure, Throat pain, Difficulty swallowing. denies: Ear pain, Throat swelling, Mouth pain, Dental problem Cardiovascular: denies: Chest pain, Palpitations, Orthopnea, Dyspnea, Syncope, Dizziness, Lightheaded Respiratory: Cough. denies: Hurts to breathe, Short of breath, Wheezing Gastrointestinal: denies: Abdominal pain, Diarrhea, Nausea, Vomiting Genitourinary: No symptoms reported Female Genitourinary: No symptoms reported Musculoskeletal: No symptoms reported Skin: No symptoms reported. denies: Rash Hematologic/Lymphatic: No symptoms reported Neurological/Psychological: No symptoms reported, Headaches -: Yes All other systems reviewed and negative Physical Exam - Vital signs Vitals: Temp Pulse Resp BP Pulse Ox 98.3 F 91 16 121/80 97 04/23/19 05:37 04/23/19 05:37 04/23/19 05:37 04/23/19 05:37 04/23/19 05:37 Interpretation: Normal - General General appearance: Appears well, Alert - HEENT Head: Normocephalic, Atraumatic Eyes: Normal Pupils: PERRL Ears: Normal External canal: Normal Tympanic membrane: Normal Sinus: Normal. No: Frontal, Maxillary, Tenderness Nasal: Clear rhinorrhea. No: Epistaxis, Purulent discharge, Septal hematoma Mouth/Lips: Normal Mucous membranes: Normal Pharynx: Erythema, Post nasal drainage. No: Exudate, Peritonsillar abscess, Retropharyngeal abscess, Tonsillar hypertrophy, Uvular edema, Potential airway comprom. Neck: Normal, Supple. No: Lymphadenopathy, Meningismus - Respiratory Respiratory status: No respiratory distress Chest status: Nontender Breath sounds: Normal. No: Rales, Rhonchi, Stridor, Wheezing Chest palpation: Normal - Cardiovascular Rhythm: Regular Heart sounds: Normal auscultation Murmur: No - Abdominal Inspection: Normal Distension: No distension Bowel sounds: Normal Tenderness: Nontender. 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 Will discharge home with symptomatic relief. Encouraged pushing fluids, rest. Encouraged to return if symptoms worsened. Patient agrees with the plan. - Vital Signs Vital signs: Temp Pulse Resp BP Pulse Ox 98.6 F 82 16 122/86 H 100 04/23/19 09:42 04/23/19 09:42 04/23/19 09:42 04/23/19 09:42 04/23/19 09:42 Discharge - Discharge Clinical Impression: Sore throat, Nasal congestion, Flu-like symptoms URI (upper respiratory infection) Qualifiers: URI type: unspecified URI Qualified Code(s): J06.9 - Acute upper respiratory infection, unspecified Condition: Stable Disposition: HOME, SELF-CARE Instructions: Upper Respiratory Illness ([facility]) Additional Instructions: PUSH FLUIDS. REST AT HOME IN THE BED. TAKE MEDICINES PRESCRIBED. MAY TAKE TYLENOL AND MOTRIN FOR BODY ACHES. USE NASAL SALINE SPRAY. Prescriptions: Ibuprofen [Motrin 600 mg Tablet] 600 mg PO Q8HP PRN #30 tablet PRN Reason: Albuterol Sulfate [Albuterol Sulfate Hfa] 2 puff IH Q4H #1 [id number].aer.[email or web address] Codeine Phosphate/Guaifenesin [Cheratussin AC Syrup] 10 ml PO TID #118 liquid Prednisone 50 mg PO DAILY #5 tablet Forms: Return to Work Referrals: [facility] [Outside] - Follow up as needed
[2019-04-23 09:43] VITALS: BP 122/86
== END 2019-04-23 09:47 | disposition home or self-care (01) ==
LOC: ER 05:31
DX: J06.9 Acute upper respiratory infection, unspecified (principal); J02.9 Acute pharyngitis, unspecified; R09.81 Nasal congestion; R05 Cough; R09.89 Other specified symptoms and signs involving the circulatory and respiratory systems; R13.10 Dysphagia, unspecified; F17.200 Nicotine dependence, unspecified, uncomplicated
CPT/HCPCS: 87070; 87880; 99282